=== PATIENT | male | born 2000 | race Caucasian/White ===

== ENCOUNTER 2023-05-06 11:55 | Emergency (ER) | payer OTHER, SELFPAY ==
--- OUTSIDE RECORDS SUMMARY | 2023-05-06 12:19 | XMS REPORT | Continuity of Care Document ---
:2000 Author Organization [facility] t Address [address]. [address] [place] [address] Care Team Providers Name Role Phone JOANIE IZAGUIRRE Attending Clinician Unavailable ZINA, SON Attending Clinician [phone] ABDIRIZAK ALM Attending Clinician Unavailable ABDIRIZAK LAM Attending Clinician [phone] [facility], PROVIDER Attending Clinician Unavailable TREY CORREA Attending Clinician [phone] Robin Dempsey Attending Clinician [facility], NURSE Attending Clinician Unavailable Donte Buitrago Attending Clinician DR JAZMIN MAYEN Attending Clinician Unavailable DR SHARON MAYEN Attending Clinician Unavailable ANDREW VAIL Attending Clinician Unavailable TATA JARAMILLO Attending Clinician [phone] DR JAZMIN MAYEN Admitting Clinician Unavailable DR SHARON MAYEN Admitting Clinician Unavailable ANDREW VAIL Admitting Clinician Unavailable Problems Condition Condition Condition Status Onset Resolution Last Treating Co mments Source Name Details Category Date Date Treatment Clinician Date Epigastric Epigastri Problem 2018-01-15 Memoria pain c pain 21:29:45 l 01/15/2018 Kelvin patrick [place] Nausea Nausea Problem 2018-01-15 Aldo naye 01/15/2018 21:29:45 l MH [place] Attention- Attention Problem 2018-01-15 Memoria deficit -deficit 21:29:45 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 rmann ity ity disorder, disorder, unspecifie unspecifie d type d type 01/15/2018 MH [place] Heart Heart Problem Resolve 2018-02-27 Aldo naye murmur murmur d 11:47:12 l (observabl (observabl He rmann e entity) e entity) Resolved Problem 02/27/2018 [facility] [place] Attention Attention Problem Active 2018-02-27 Memoria deficit deficit 11:47:12 l hyperactiv hyperactiv Roger escobar ity disorder disorder (disorder) (disorder) Active Problem 02/27/2018 [facility] [place] Migraine Migraine Problem Active 2018-02-27 Memoria (disorder) (disorder) 11:47:12 l Active Deric [facility] [place] History of Past Illness Condition Condition Condition Status Onset Resolution Last Treating Co mments Source Name Details Category Date Date Treatment Clinician Date Right Right Problem 2018-01-15 2018-01-15 M emoria upper upper 1-17 21:29:45 21:29:45 l quadrant quadrant 04:50: Kelvin n pain pain 33 10/16/2017 01/15/2018 [place] Unspecifie Unspecifi Problem 2018-01-15 2018-01-15 Memoria d ed 1-10 21:29:45 21:29:45 l abdominal abdominal 06:00: Herm rajiv pain pain 00 10/09/2017 01/15/2018 [place] Allergies, Adverse Reactions, Alerts Allergy Allergy Status Severity Reaction(s) Onset Inactive Treating Comm ents Source Name Type Date Date Clinician Wero Bactrim Active Chun Leos NKFA NKFA Active Chun Leos Social History Social Habit Start Date Stop Date Quantity Comments Source Sex Assigned At Male [facility] Social History 2017-10-21 2017-10-21 Quin avila 17:09:32 17:09:32 Smoking Status Start Date Stop Date Source Unknown if ever smoked [facility] Medications Ordered Filled Start Stop Current Ordering Indication Dosage Frequency Signature Comments Components Source Medication Medication Date Date Medication? Clinician (SIG) Name Name GI cocktail No Notes: Aldo naye 1-11 G.I. l 03:53: Cocktail = [place] 00 antacid with simethicon e 22.5 mL - lidocaine viscous 7.5 mL Zofran No Notes: Memoria 1-11 (Same as: l 03:53: Zofran) Deric 00 MEDICATION WASTE Product Size: 4 mg Product Wasted: ___ mg NS (Bolus) No 1,000 mL, Me moria IV 1-11 1,000 l 03:53: ml/hr, Deric 00 Infuse Over: 1 hr, Route: IV, 1,000, Drug form: INJ, ONCE, Priority: STAT, Dosing Weight 69.545 kg, Start date: 10/09/17 21:53:00 PLASTIC PRESS MOLDER, Stop date: 10/09/17 21:53:00 PLASTIC PRESS MOLDER Immunizations Ordered Filled Date Status Comments Source Immunization Name Immunization Name Influenza Completed Note: FLU VACC 4 [facility] 2 URIEL 3 YRS PLUS IM 00:00:00 By CHULA ; Source: New Immunization Record Influenza Completed Note: FLU VACC 4 [facility] 2 URIEL 3 YRS PLUS IM 00:00:00 By CHULA ; Source: New Immunization Record Influenza Completed Note: FLU VACC 4 [facility] 2 URIEL 3 YRS PLUS IM 00:00:00 By CHULA ; Source: New Immunization Record Influenza Completed Note: FLU VACC 4 [facility] 2 URIEL 3 YRS PLUS IM 00:00:00 By CHULA ; Source: New Immunization Record Influenza Completed Note: FLU VACC 4 [facility] 2 URIEL 3 YRS PLUS IM 00:00:00 [facility] ; Source: New Immunization Record HPV 2017-03-31 Completed Note: HPV [facility] 4 VACCINE-75 By 00:00:00 [facility] ; Source: New Immunization Record HPV 2017-03-31 Completed Note: HPV [facility] 4 VACCINE-75 By 00:00:00 [facility] ; Source: New Immunization Record HPV 2017-03-31 Completed Note: HPV [facility] 4 VACCINE-75 By 00:00:00 [facility] ; Source: New Immunization Record HPV 2017-03-31 Completed Note: HPV [facility] 4 VACCINE-75 By 00:00:00 [facility] ; Source: New Immunization Record HPV 2017-03-31 Completed Note: HPV [facility] 4 VACCINE-75 By 00:00:00 CHULA ; Source: New Immunization Record HPV 2016-11-29 Completed Note: HPV [facility] 4 VACCINE-75 By 00:00:00 [facility] ; Source: New Immunization Record HPV 2016-11-29 Completed Note: HPV [facility] 4 VACCINE-75 By 00:00:00 CORTEGA ; Source: New Immunization Record HPV 2016-11-29 Completed Note: HPV [facility] 4 VACCINE-75 By 00:00:00 CORTEGA ; Source: New Immunization Record HPV 2016-11-29 Completed Note: HPV [facility] 4 VACCINE-75 By 00:00:00 CORTEGA ; Source: New Immunization Record HPV 2016-11-29 Completed Note: HPV [facility] 4 VACCINE-75 By 00:00:00 CORTEGA ; Source: New Immunization Record HPV 2016-10-01 Completed Note: HPV [facility] 4 VACCINE-75 By 00:00:00 [facility] ; Source: New Immunization Record HPV 2016-10-01 Completed Note: HPV [facility] 4 VACCINE-75 By 00:00:00 [facility] ; Source: New Immunization Record HPV 2016-10-01 Completed Note: HPV [facility] 4 VACCINE-75 By 00:00:00 [facility] ; Source: New Immunization Record HPV 2016-10-01 Completed Note: HPV [facility] 4 VACCINE-75 By 00:00:00 [facility] ; Source: New Immunization Record HPV 2016-10-01 Completed Note: HPV [facility] 4 VACCINE-75 By 00:00:00 [facility] ; Source: New Immunization Record Meningococcal 2016-05-02 Completed Note: MCV4 [facility] (MENIGOCOCCAL 00:00:00 CONJUGATE VACCINE W-135) By CORTEGA ; Source: New Immunization Record Meningococcal 2016-05-02 Completed Note: MCV4 [facility] (MENIGOCOCCAL 00:00:00 CONJUGATE VACCINE W-135) By CORTEGA ; Source: New Immunization Record Meningococcal 2016-05-02 Completed Note: MCV4 [facility] 1 (MENIGOCOCCAL 00:00:00 CONJUGATE VACCINE W-135) By CORTEGA ; Source: New Immunization Record Meningococcal 2016-05-02 Completed Note: MCV4 [facility] 1 (MENIGOCOCCAL 00:00:00 CONJUGATE VACCINE W-135) By CORTEGA ; Source: New Immunization Record Meningococcal 2016-05-02 Completed Note: MCV4 [facility] 1 (MENIGOCOCCAL 00:00:00 CONJUGATE VACCINE W-135) By CORTEGA ; Source: New Immunization Record Vital Signs Vital Name Observation Time Observation Value Comments Source Intravascular Systolic 2018-04-15 15:03:00 132 mm[Hg] [facility] Intravascular 2018-04-15 15:03:00 73 mm[Hg] [facility] Diastolic Heart Beat 2018-04-15 15:03:00 62 /min [facility] Body Temperature 2018-04-15 15:03:00 98.50 [degF] [facility] Respiratory Rate 2018-04-15 15:03:00 22 /min [facility] Body mass index 2018-04-15 15:03:00 23[facility]60 [facility] height 2018-04-15 15:03:00 65.00 [in_us] [facility] Patient Body Weight 2018-04-15 15:03:00 142.12 [lb_av] [facility] Body height 2017-11-01 14:23:00 65.00 [in_us] [facility] Patient Body Weight 2017-11-01 14:23:00 154.00 [lb_av] [facility] Systolic 2017-11-01 14:23:00 130 mm[Hg] [facility] 2017-11-01 14:23:00 71 mm[Hg] [facility] Diastolic Heart Beat 2017-11-01 14:23:00 69 /min [facility] Body Temperature 2017-11-01 14:23:00 98.10 [degF] [facility] Respiratory Rate 2017-11-01 14:23:00 18 /min [facility] Body mass index 2017-11-01 14:23:00 25[facility]60 [facility] 2017-10-10 05:55:00 [facility] Temperature Oral (F) 2017-10-10 05:55:00 98 F [facility] Respitory Rate 2017-10-10 05:55:00 Memori al [place] Systolic (mm Hg) 2017-10-10 05:55:00 Aldo rial [place] Diastolic (mm Hg) 2017-10-10 05:55:00 Mem orial Deric Temperature Oral (F) 2017-10-10 05:23:00 98 F [facility] Respitory Rate 2017-10-10 05:23:00 Memori al [place] Heart Rate 2017-10-10 05:23:00 [facility] Systolic (mm Hg) 2017-10-10 05:23:00 Aldo rial [place] Diastolic (mm Hg) 2017-10-10 05:23:00 Mem orial [place] Respitory Rate 2017-10-10 02:58:00 Maria Elena al [place] Heart Rate 2017-10-10 02:58:00 [facility] Temperature Oral (F) 2017-10-10 02:58:00 97.9 F [facility] Weight 2017-10-10 02:58:00 [facility] Systolic (mm Hg) 2017-10-10 02:58:00 Aldo maldonado [place] Diastolic (mm Hg) 2017-10-10 02:58:00 Mem bernabe Javierann Body height 2017-10-09 14:10:00 65.00 [in_us] [facility] Patient Body Weight 2017-10-09 14:10:00 151.25 [lb_av] [facility] Systolic 2017-10-09 14:10:00 144 mm[Hg] [facility] 2017-10-09 14:10:00 97 mm[Hg] [facility] Diastolic Heart Beat 2017-10-09 14:10:00 78 /min [facility] Body Temperature 2017-10-09 14:10:00 97.50 [degF] [facility] Respiratory Rate 2017-10-09 14:10:00 22 /min [facility] Body mass index 2017-10-09 14:10:00 25.20 [facility] height 2017-09-11 09:40:00 64.50 [in_us] [facility] Body Weight 2017-09-11 09:40:00 150.25 [lb_av] [facility] Systolic 2017-09-11 09:40:00 130 mm[Hg] [facility] 2017-09-11 09:40:00 81 mm[Hg] [facility] Diastolic Heart Beat 2017-09-11 09:40:00 65 /min [facility] Body Temperature 2017-09-11 09:40:00 98.10 [degF] [facility] Respiratory Rate 2017-09-11 09:40:00 18 /min [facility] Body mass index 2017-09-11 09:40:00 25.40 [facility]m2 [facility] height 2017-05-03 16:05:00 64.50 [in_us] [facility] Body Weight 2017-05-03 16:05:00 141.60 [lb_av] [facility] Systolic 2017-05-03 16:05:00 129 mm[Hg] [facility] 2017-05-03 16:05:00 68 mm[Hg] [facility] Diastolic Heart Beat 2017-05-03 16:05:00 73 /min [facility] Body Temperature 2017-05-03 16:05:00 97.90 [degF] [facility] Respiratory Rate 2017-05-03 16:05:00 18 /min [facility] Body mass index 2017-05-03 16:05:00 23.90 kg/m2 [facility] Body height 2017-01-08 16:04:00 64.00 [in_us] [facility] Patient Body Weight 2017-01-08 16:04:00 133.80 [lb_av] [facility] Systolic 2017-01-08 16:04:00 120 mm[Hg] [facility] 2017-01-08 16:04:00 77 mm[Hg] [facility] Diastolic Heart Beat 2017-01-08 16:04:00 63 /min [facility] Body Temperature 2017-01-08 16:04:00 98.30 [degF] [facility] Respiratory Rate 2017-01-08 16:04:00 18 /min [facility] Body mass index 2017-01-08 16:04:00 23.00 kg/m2 [facility] Body height 2016-11-07 16:17:00 64.00 [in_us] [facility] Patient Body Weight 2016-11-07 16:17:00 127.25 [lb_av] [facility] Systolic 2016-11-07 16:17:00 114 mm[Hg] [facility] 2016-11-07 16:17:00 80 mm[Hg] [facility] Diastolic Heart Beat 2016-11-07 16:17:00 59 /min [facility] Body Temperature 2016-11-07 16:17:00 97.50 [degF] [facility] Respiratory Rate 2016-11-07 16:17:00 22 /min [facility] Body mass index 2016-11-07 16:17:00 21.80 kg/m2 [facility] Patient Body Weight 2016-10-23 15:37:00 130.00 [lb_av] [facility] Systolic 2016-10-23 15:37:00 131 mm[Hg] [facility] 2016-10-23 15:37:00 76 mm[Hg] [facility] Diastolic Heart Beat 2016-10-23 15:37:00 73 /min [facility] Body Temperature 2016-10-23 15:37:00 97.60 [degF] [facility] Respiratory Rate 2016-10-23 15:37:00 18 /min [facility] Body height 2016-08-01 10:21:00 64.00 [in_us] [facility] Patient Body Weight 2016-08-01 10:21:00 130.00 [lb_av] [facility] Systolic 2016-08-01 10:21:00 128 mm[Hg] [facility] 2016-08-01 10:21:00 62 mm[Hg] [facility] Diastolic Heart Beat 2016-08-01 10:21:00 65 /min [facility] Body Temperature 2016-08-01 10:21:00 96.80 [degF] [facility] Respiratory Rate 2016-08-01 10:21:00 20 /min [facility] Body mass index 2016-08-01 10:21:00 22.30 [facility] height 2016-05-30 14:44:00 63.25 [in_us] [facility] Patient Body Weight 2016-05-30 14:44:00 128.60 [lb_av] [facility] Systolic 2016-05-30 14:44:00 131 mm[Hg] [facility] 2016-05-30 14:44:00 84 mm[Hg] [facility] Diastolic Heart Beat 2016-05-30 14:44:00 72 /min [facility] Body Temperature 2016-05-30 14:44:00 97.40 [degF] [facility] Respiratory Rate 2016-05-30 14:44:00 20 /min [facility] Body mass index 2016-05-30 14:44:00 22.60 kg/m2 [facility] Procedures Procedure Date / Time Performed Performing Clinician Sourc e Infectious agent detection 2020-07-09 00:00:00 [facility] by nucleic acid (DNA or Tonsillectomy and [facility] adenoidectomy Encounters Start End Encounter Admission Attending Care Care Encounter Source Date/Time Date/Time Type Type Clinicians Facility Department ID 2021-11-30 2021-11-30 Outpatient JOANIE IZAGUIRRE [facility] [id number] [facility] 13:18:00 13:18:00 [facility] 2021-11-30 2021-11-30 Outpatient JOANIE IZAGUIRRE [facility] [id number] [facility] 13:18:00 13:18:00 e2-6nt2-78q [id number] [facility] [id number] 2021-11-29 2021-11-29 Outpatient JOANIE IZAGUIRRE [facility] [id number] [facility] 13:49:00 13:49:00 [facility] 2021-11-29 2021-11-29 Outpatient JOANIE IZAGUIRRE [facility] [id number] [facility] 13:49:00 13:49:00 e2-1io8-39y [id number] [facility] [id number] 2020-07-09 2020-07-09 Outpatient [facility] [id number] [facility] 08:30:00 08:30:00 [facility] 2020-07-09 2020-07-09 Outpatient CAROLE, [facility] [id number] [facility] 08:30:00 08:30:00 ABDIRIZAK [facility] 2020-07-09 2020-07-09 Outpatient CAROLE, [facility] [id number] [facility] 08:30:00 08:30:00 ABDIRIZAK Patricia [id number] [facility] [id number] 2020-07-09 2020-07-09 Outpatient [facility] [id number] [facility] 08:30:00 08:30:00 00-0000-000 [id number] ealt [id number] 2018-04-15 2018-04-15 Outpatient CAROLE, [facility] [id number] [facility] 15:03:00 15:03:00 ABDIRIZAK Patricia [id number] ealth [id number] [id number] 2018-04-15 2018-04-15 Outpatient [facility] [id number] [facility] 00:00:00 00:00:00 H, PROVIDER ea lth 2018-04-15 2018-04-15 Outpatient [facility] [id number] [facility] 00:00:00 00:00:00 H, PROVIDER [id number] ealth [id number] 2018-04-15 2018-04-15 Outpatient SUNNY, [facility] [id number] [facility] 00:00:00 00:00:00 TREY [id number] ealth [id number] 0f4 [id number] 2018-03-18 2018-03-18 Outpatient CAROLE, [facility] [id number] [facility] 00:00:00 00:00:00 ABDIRIZAK Patricia [id number] ealth [id number] 0f4 [id number] 2017-11-21 2017-11-21 Ambulatory nullFlavo [facility] [id number] Memoria 20:20:00 20:20:00 Pre-Reg r Gastroenter 01 l ology Sugar Herm rajiv Land 2017-11-21 2017-11-21 Outpatient [facility] [id number] Memoria 14:20:00 14:20:00 01 l Deric 2017-11-21 2017-11-21 Outpatient Roselyn, [facility] [id number] 14:20:00 14:20:00 Robin 01 Travon 2017-11-07 2017-11-07 Outpatient CAROLE, [facility] [id number] [facility] 00:00:00 00:00:00 ABDIRIZAK Patricia [id number] [id number] ealt [id number] 2017-11-01 2017-11-01 Outpatient CAROLE, [facility] [id number] [facility] 15:32:00 15:32:00 ABDIRIZAK Patricia e2-3bp7-41q [id number] ealth [id number] [id number] 2017-11-01 Outpatient [facility] [id number] [facility] 00:00:00 00:00:00 H, PROVIDER ea lth 2017-11-01 2017-11-01 Outpatient [facility] [id number] [facility] 00:00:00 00:00:00 H, PROVIDER [id number] f1-8 ealth [id number] 2017-11-01 2017-11-01 Outpatient SUNNY, [facility] [id number] [facility] 00:00:00 00:00:00 TREY e2-3pn3-62g [id number] ealth [id number] 0f4 [id number] 2017-11-01 2017-11-01 Outpatient [facility], [facility] [id number] [facility] 00:00:00 00:00:00 NURSE e2-4vw8-37g [id number] ealth [id number] 0f4 [id number] 2017-10-21 2017-10-21 Outpatient [facility] [id number] [facility] 10:40:00 10:40:00 00 darlyn Leos 2017-10-10 2017-10-10 Emergency [facility] [id number] Memoria 02:45:00 05:59:00 [place] 2017-10-09 2017-10-09 Outpatient Iftikhar, [facility] [id number] 20:45:00 23:59:00 Donte 00 Rojelio 2017-10-09 2017-10-09 Outpatient CAROLE, [facility] [id number] [facility] 14:10:00 14:10:00 ABDIRIZAK Patricia e2-3vs6-97d [id number] ealth [id number] 0f4 [id number] 2017-10-09 2017-10-09 Outpatient [facility] [id number] [facility] 00:00:00 00:00:00 H, PROVIDER [facility] 2017-10-09 2017-10-09 Outpatient [facility] [id number] [facility] 00:00:00 00:00:00 H, PROVIDER [id number] [id number] [id number] ealth [id number] 2017-09-11 2017-09-11 Outpatient CAROLE, [facility] [id number] [facility] 09:40:00 09:40:00 ABDIRIZAK Patricia e2-5go7-35f [id number] ealth [id number] 0f4 [id number] 2017-09-11 2017-09-11 Outpatient [facility] [id number] [facility] 00:00:00 00:00:00 H, PROVIDER [facility] 2017-09-11 2017-09-11 Outpatient [facility] [id number] [facility] 00:00:00 00:00:00 H, PROVIDER e2-7xp3-97o [id number] fc-8 ealth [id number] 2017-09-08 2017-09-08 Emergency E [facility]EM [facility] [id number] [place] 17:19:00 18:45:00 [facility] 2017-08-28 2017-08-28 Emergency E [facility]ARON [facility]EN [facility] [id number] [place] 15:14:00 16:30:00 [facility] [place] 2017-08-27 2017-08-27 Emergency E GENNA [facility] [id number] [place] 15:20:00 16:10:00 [facility] 2017-05-06 2017-05-06 Outpatient CAROLE, [facility] [id number] [facility] 00:00:00 00:00:00 ABDIRIZAK Patricia e2-2ef3-44l [id number] ealt [id number] 0f4 [id number] 2017-05-03 2017-05-03 Outpatient CAROLE, [facility] [id number] [facility] 16:05:00 16:05:00 ABDIRIZAK Patricia e2-8mk2-19o [id number] ealth [id number] 0f4 [id number] 2017-05-03 2017-05-03 Outpatient [facility] [id number] [facility] 00:00:00 00:00:00 H, PROVIDER [facility] 2017-05-03 2017-05-03 Outpatient [facility] [id number] [facility] 00:00:00 00:00:00 H, PROVIDER e2-1ks6-24j [id number] [id number] ealth [id number] 2017-04-22 2017-04-22 Outpatient H ZULMA, HC [id number] [facility] 15:12:00 15:12:00 NURSE e2-4fu0-48d [id number] ealth [id number] [id number] 2017-04-22 2017-04-22 Outpatient [facility] [id number] [facility] 00:00:00 00:00:00 H, PROVIDER [facility] 2017-04-22 2017-04-22 Outpatient [facility] [id number] [facility] 00:00:00 00:00:00 H, PROVIDER e2-5jh3-90k [id number]-46 1d-b ealth [id number] 0f4 [id number] 2017-01-08 2017-01-08 Outpatient CAROLE, [facility] [id number] [facility] 16:04:00 16:04:00 ABDIRIZAK S e2-1kg6-02j [id number] ealth [id number] 2017-01-08 2017-01-08 Outpatient [facility] [id number] [facility] 00:00:00 00:00:00 H, PROVIDER [facility] 2017-01-08 2017-01-08 Outpatient [facility] [id number] [facility] 00:00:00 00:00:00 H, PROVIDER e2-2tu5-77k [id number] [id number] ealth [id number] 2016-12-21 2016-12-21 Outpatient [facility], [facility] [id number] [facility] 15:47:00 15:47:00 NURSE e2-2cf0-86t [id number] ealth [id number] 2016-12-21 2016-12-21 Outpatient [facility] [id number] [facility] 00:00:00 00:00:00 H, PROVIDER [facility] 2016-12-21 2016-12-21 Outpatient [facility] [id number] [facility] 00:00:00 00:00:00 H, PROVIDER e2-8tv7-56o a93-43 f9-a ealth 0-yp2hav530 [id number] 0f4 [id number] 2016-11-07 2016-11-07 Outpatient L[place], [facility] [id number] [facility] 16:17:00 16:17:00 ABDIRIZAK S e2-6jf5-17w b94-21aw -b ealt 0-zk2szw270 [id number] 0f4 e9cbac 2016-11-07 2016-11-07 Outpatient [facility] [id number] [facility] 00:00:00 00:00:00 H, PROVIDER [facility] 2016-11-07 2016-11-07 Outpatient [facility] [id number] [facility] 00:00:00 00:00:00 H, PROVIDER e2-4mg1-08t c71-46 39-8 ealth 0-wa5egg659 53c-9dy405 0f4 [id number] 2016-10-25 2016-10-25 Outpatient [place], [facility] [id number] [facility] 00:00:00 00:00:00 [place] e2-9ul0-30d 0b7-12o1 -9 ealt 0-ur8bta626 [id number] 0f4 [id number] 2016-10-23 2016-10-23 Outpatient [place], [facility] [id number] [id number] [facility] 16:06:00 16:06:00 [place] e2-2zy1-42j t1o-0717 -8 ealt 0-vx2gqg542 [id number] 0f4 edfa78 2016-10-23 2016-10-23 Outpatient [facility] [id number] [facility] 00:00:00 00:00:00 H, PROVIDER [facility] 2016-10-23 2016-10-23 Outpatient [facility] [id number] [facility] 00:00:00 00:00:00 H, PROVIDER e2-1yr5-26l 77e-47 17-9 ealth 0-ib5yec360 dfe-[id number] 0f4 [id number] 2016-10-23 2016-10-23 Outpatient [place], [facility] [id number] [facility] 00:00:00 00:00:00 ABDIRIZAK S e2-6jz0-81k 0l4-515u -a ealth 0-ds1zvv008 [id number]-[id number] 0f4 [id number] 2016-08-01 2016-08-01 Outpatient [place], [facility] [id number] [facility] 10:21:00 10:21:00 ABDIRIZAK [place] e2-1mn0-47q 9m7-0x5u -8 ealth 0-xi9cdx903 fbd-gar456 0f4 8cbe2a 2016-08-01 2016-08-01 Outpatient [facility] [id number] [facility] 00:00:00 00:00:00 H, PROVIDER ea lth 2016-08-01 2016-08-01 Outpatient [facility] [id number] [facility] 00:00:00 00:00:00 H, PROVIDER e2-9vg2-53g 12a-46 8f-9 ealth 0-tk0fcp360 bff-f6a1cb 0f4 [id number] 2016-07-04 2016-07-04 Outpatient [place] [facility] [id number] [facility] 00:00:00 00:00:00 TREY e2-0jo9-57d 53d-4b8f-b ealth 0-[id number] [id number] 0f4 [id number] 7212-09-01 2016-05-31 Outpatient SUN[facility], [facility] [id number] [facility] 00:00:00 00:00:00 TREY e2-9ci2-08t 6k4-6s3q-9 ealth 0-is6mrv846 [id number] 0f4 [id number] 2016-05-30 2016-05-30 Outpatient SUNNY, [facility] [id number] [facility] 15:21:00 15:21:00 TREY e2-9ok4-09w 6j4-2fh1-5 ealth 0-fh1lxo953 [id number] 0f4 [id number] 2016-05-30 2016-05-30 Outpatient [facility] [id number] [facility] 00:00:00 00:00:00 H, PROVIDER robert lanza 2016-05-30 2016-05-30 Outpatient [facility] [id number] [facility] 00:00:00 00:00:00 H, PROVIDER vida4za2-43c de1-46 51-b [facility] 0-be9omt577 [id number]-[id number] 0f4 [id number] 2016-05-29 2016-05-29 Outpatient [facility] [id number] [facility] 00:00:00 00:00:00 H, PROVIDER robert lanza 2016-05-29 2016-05-29 Outpatient [facility] [id number] [facility] 00:00:00 00:00:00 H, PROVIDER vida9cf5-91d 8bc-4b 2c-b [facility] 0-do8fex105 [id number]-[id number] 0f4 1decfa 2015-08-02 2015-08-02 Outpatient [facility] [id number] [facility] 00:00:00 00:00:00 H, PROVIDER robert lanza 2015-08-02 2015-08-02 Outpatient [facility] [id number] [facility] 00:00:00 00:00:00 H, PROVIDER vida8dm5-96x 74b-45 d0-8 [facility] 0-an1lyn694 [id number] 0f4 [id number] 2015-01-18 2015-01-18 Outpatient [facility] [id number] [facility] 00:00:00 00:00:00 H, PROVIDER robert lanza 2015-01-18 2015-01-18 Outpatient [facility] [id number] [facility] 00:00:00 00:00:00 H, PROVIDER vida9oe0-85o 9a5-4d 77-a [facility] 0-oz6zuj306 [id number] 0f4 [id number] 2014-10-06 2014-10-06 Outpatient [facility] [id number] [facility] 00:00:00 00:00:00 H, PROVIDER robert lanza 2014-10-06 2014-10-06 Outpatient [facility] [id number] [facility] 00:00:00 00:00:00 H, PROVIDER vida1zz5-94f e9a-42 ac-b [facility] 0-[id number] [id number] 0f4 [id number] 2014-07-21 2014-07-21 Outpatient [facility] [id number] [facility] 00:00:00 00:00:00 H, PROVIDER robert odell 2014-07-21 2014-07-21 Outpatient [facility] [id number] [facility] 00:00:00 00:00:00 H, PROVIDER vida5sc5-28o 3c2-44 dc-b [facility] 0-bj1ivn533 [id number] 0f4 [id number] 2014-01-19 2014-01-19 Outpatient [facility] [id number] [facility] 00:00:00 00:00:00 H, PROVIDER robert odell 2014-01-19 2014-01-19 Outpatient [facility] [id number] [facility] 00:00:00 00:00:00 H, PROVIDER vida8yv5-20z 20e-47 88-8 [facility] 0-iq6jqt411 [id number] 0f4 [id number] 2013-10-22 2013-10-22 Outpatient [facility] [id number] [facility] 00:00:00 00:00:00 H, PROVIDER robert odell 2013-10-22 2013-10-22 Outpatient [facility] [id number] [facility] 00:00:00 00:00:00 H, PROVIDER vida5bp0-62y 08e-4b f8-8 [facility] 0-iw2jda480 [id number] 0f4 [id number] 2013-02-20 2013-02-20 Outpatient [facility] [id number] [facility] 00:00:00 00:00:00 H, PROVIDER robert lanza 2013-02-20 2013-02-20 Outpatient [facility] [id number] [facility] 00:00:00 00:00:00 H, PROVIDER jacqueline-5ht2-86k a67-40 62-b [facility] 0-tz4rgk534 [id number] 0f4 528ade 2012-05-15 2012-05-15 Outpatient [facility] [id number] [facility] 00:00:00 00:00:00 H, PROVIDER robert lanza 2012-05-15 2012-05-15 Outpatient [facility] [id number] [facility] 00:00:00 00:00:00 H, PROVIDER vida5ef6-56z 609-43 5f-b [facility] 0-qw0zjc424 [id number] 0f4 [id number] 2012-04-28 2012-04-28 Outpatient [facility] [id number] [facility] 00:00:00 00:00:00 H, PROVIDER robert odell 2012-04-28 2012-04-28 Outpatient [facility] [id number] [facility] 00:00:00 00:00:00 H, PROVIDER jacqueline-5jm8-35f b8f-45 1f-b [facility] 0-ti7evt896 [id number] 0f4 [id number] 2012-04-23 2012-04-23 Outpatient [facility] [id number] [facility] 00:00:00 00:00:00 H, PROVIDER robert lanza 2012-04-23 2012-04-23 Outpatient [facility] [id number] [facility] 00:00:00 00:00:00 H, PROVIDER jacqueline-1xi8-11p e7b-45 c1-8 [facility] 0-om1xek244 [id number] 0f4 [id number] 2012-03-10 2012-03-10 Outpatient [facility] [id number] [facility] 00:00:00 00:00:00 H, PROVIDER robert lanza 2012-03-10 2012-03-10 Outpatient [facility] [id number] [facility] 00:00:00 00:00:00 H, PROVIDER vida9el4-85w 802-4b 84-b [facility] 0-lq6qgg034 [id number] 0f4 [id number] 2012-03-06 2012-03-06 Outpatient [facility] [id number] [facility] 00:00:00 00:00:00 H, PROVIDER robert lanza 2012-03-06 2012-03-06 Outpatient [facility] [id number] [facility] 00:00:00 00:00:00 H, PROVIDER jacqueline-8qx9-09t c2b-43 0a-9 [facility] 0-[id number] [id number] 0f4 [id number] 2011-09-27 2011-09-27 Outpatient [facility] [id number] [facility] 00:00:00 00:00:00 H, PROVIDER robert lanza 2011-09-27 2011-09-27 Outpatient [facility] [id number] [facility] 00:00:00 00:00:00 H, PROVIDER jacqueline-4af6-86r 55e-4b c8-9 [facility] 0-st4usf504 [id number] 0f4 [id number] 2011-09-11 2011-09-11 Outpatient [facility] [id number] [facility] 00:00:00 00:00:00 H, PROVIDER robert lanza 2011-09-11 2011-09-11 Outpatient [facility] [id number] [facility] 00:00:00 00:00:00 H, PROVIDER vida2as3-90d 6ab-4a 18-9 [facility] 0-zc2yha524 [id number] 0f4 [id number] 2011-08-09 2011-08-09 Outpatient [facility] [id number] [facility] 00:00:00 00:00:00 H, PROVIDER robert lanza 2011-08-09 2011-08-09 Outpatient [facility] [id number] [facility] 00:00:00 00:00:00 H, PROVIDER vida0gh0-82x 060-43 1a-b ealt 0-bh3bui269 [id number]-cda4d9 0f4 82fefa 2011-02-16 2011-02-16 Outpatient [facility] [id number] [facility] 00:00:00 00:00:00 H, PROVIDER robert lanza 2011-02-16 2011-02-16 Outpatient [facility] [id number] [facility] 00:00:00 00:00:00 H, PROVIDER vida2yf9-53s 1ff-44 04-9 ealt 0-bj4sbk309 [id number] 0f4 [id number] 2010-11-15 2010-11-15 Outpatient [facility] [id number] [facility] 00:00:00 00:00:00 H, PROVIDER robert lanza 2010-11-15 2010-11-15 Outpatient [facility] [id number] [facility] 00:00:00 00:00:00 H, PROVIDER vida8io7-02r 00c-4f 98-b ealt 0-ap1mja362 [id number] 0f4 [id number] 2010-09-13 2010-09-13 Outpatient [facility] [id number] [facility] 00:00:00 00:00:00 H, PROVIDER robert lanza 2010-09-13 2010-09-13 Outpatient [facility] [id number] [facility] 00:00:00 00:00:00 H, PROVIDER vida6yp7-24m 5d1-41 26-8 ealt 0-xf2hjl315 [id number] 0f4 [id number] 2010-07-27 2010-07-27 Outpatient [facility] [id number] [facility] 00:00:00 00:00:00 H, PROVIDER robert odell 2010-07-27 2010-07-27 Outpatient [facility] [id number] [facility] 00:00:00 00:00:00 H, PROVIDER vida0xh8-91j de1-42 73-a [facility] 0-hl5hpm268 [id number]-[id number] 0f4 [id number] 2010-05-08 2010-05-08 Outpatient [facility] [id number] [facility] 00:00:00 00:00:00 H, PROVIDER robert lanza 2010-05-08 2010-05-08 Outpatient [facility] [id number] [facility] 00:00:00 00:00:00 H, PROVIDER vida4sz2-88r b9f-47 58-8 [facility] 0-[id number] [id number]-[id number] 0f4 [id number] 2009-07-26 2009-07-26 Outpatient [facility] [id number] [facility] 00:00:00 00:00:00 H, PROVIDER robert odell 2009-07-26 2009-07-26 Outpatient [facility] [id number] [facility] 00:00:00 00:00:00 H, PROVIDER vida5su7-30g 760-49 0b-b [facility] 0-cp0pqi530 [id number] 0f4 [id number] 2009-06-28 2009-06-28 Outpatient [facility] [id number] [facility] 00:00:00 00:00:00 H, PROVIDER robert lanza 2009-06-28 2009-06-28 Outpatient [facility] [id number] [facility] 00:00:00 00:00:00 H, PROVIDER vida7lu9-82z b19-48 0c-b [facility] 0-vz9xnv231 [id number] 0f4 [id number] 2009-05-24 2009-05-24 Outpatient [facility] [id number] [facility] 00:00:00 00:00:00 H, PROVIDER [facility] 2009-05-24 2009-05-24 Outpatient [facility] [id number] [facility] 00:00:00 00:00:00 H, PROVIDER e2-4uy6-81s e00-4b 2e-b [facility] 0-vq7tli744 [id number] 0f4 [id number] 2009-05-17 2009-05-17 Outpatient [facility] [id number] [facility] 00:00:00 00:00:00 H, PROVIDER [facility] 2009-05-17 2009-05-17 Outpatient [facility] [id number] [facility] 00:00:00 00:00:00 H, PROVIDER vida9uu2-91u bcb-45 f9-9 [facility] 0-rb6nwx811 [id number] 0f4 [id number] 2009-04-18 2009-04-18 Outpatient [facility] [id number] [facility] 00:00:00 00:00:00 H, PROVIDER robert odell 2009-04-18 2009-04-18 Outpatient [facility] [id number] [facility] 00:00:00 00:00:00 H, PROVIDER vida3ly6-97e df2-4c 9d-b [facility] 0-km6meg144 [id number] 0f4 [id number] 2009-03-11 2009-03-11 Outpatient [facility] [id number] [facility] 00:00:00 00:00:00 H, PROVIDER robert odell 2009-03-11 2009-03-11 Outpatient [facility] [id number] [facility] 00:00:00 00:00:00 H, PROVIDER e2Ingrid1ih3-94i e3a-43 74-9 ealt 0-qn3hme834 07a-04bb08 0f4 [id number] 2009-02-14 2009-02-14 Outpatient [facility] [id number] [facility] 00:00:00 00:00:00 H, PROVIDER [facility] 2009-02-14 2009-02-14 Outpatient [facility] [id number] [facility] 00:00:00 00:00:00 H, PROVIDER e2-3ue1-18u cf2-48 91-9 [facility] 0-lm2kqy027 [id number] 0f4 [id number] 2009-01-28 2009-01-28 Outpatient [facility] [id number] [facility] 00:00:00 00:00:00 H, PROVIDER [facility] 2009-01-28 2009-01-28 Outpatient [facility] [id number] [facility] 00:00:00 00:00:00 H, PROVIDER e2-8mt7-46p 572-44 b2-b [facility] 0-fu3bwh642 [id number] 0f4 [id number] Results Test Description Test Time Test Comments Results Result Comments Source Panel Description: SARS-CoV-2 (COVID-19) RNA [Presence] in 2 06:49:00 Unspecified specimen by ASHLEY with probe detection Test Item Value Reference Range Interpretation Comme nts SARS-CoV-2, ASHLEY (test Not Detected Not Detected Testin g was performed using the code = 32781-1) reno(R) ELIDIA S-CoV-2 test.This nucleic acid am plification test was developed and i ts performancechar acteristics determined by [employer]. Nucleic acidamp lification tests include PCR and TMA. This test has not been FDAcle ared or approved. This test has b een authorized by FDA under anEmergen cy Use Authorization (EUA). This les t is only authorized forthe duration of time the declaration abida t circumstances existjustifying the authorization of the emergency u se of in vitrodiagnostic tests for detection of SARS-CoV-2 v irus and/or diagnosisof COV ID-19 infection under section 564(b)( 1) of the Act, 21 U.S.C.360bbb-3( b) (1), unless the authorization i s terminated or revokedsooner.W hen diagnostic testing is nega tive, the possibility of a falsenegat azra result should be considered in t he context of a patient'srecent exposures and the presence of cli nical signs and symptomsconsist ent with COVID-19. An individual with out symptoms of COVID-19and who is not shedding SARS-CoV-2 viru s would expect to have anegative (not detected) result in this assay.< br/>
Performed by:
[facility] ([facility])

[facility] Description: SARS-CoV-2 (COVID-19) RNA [Presence] in Specimen by ASHLEY with probe [id number] 06:49:00 Test Item Value Reference Range Interpretation Comments SARS-CoV-2 Not Detected Not Detected Testing was per formed using the , ASHLEY reno(R) SARS-C oV-2 test.This (test code nucleic acid am plification test = 77903-2) was developed a nd its performancechar acteristics determined by [employer]. [facility] acidamplificati on tests include PCR and TMA. Th is test has not been FDAcleared or approved. This test has b een authorized by FDA under anEme rgency Use Authorization ( EUA). This test is only authori zed forthe duration of charley e the declaration that circumstan charley existjustifying the authorization o f the emergency use of in vitro diagnostic tests for detection o f SARS-CoV-2 virus and/or di agnosisof COVID-19 infect ion under section 564(b)(1) of th e Act, 21 U.S.C.360bbb-3( b) (1), unless the authorizati on is terminated or revokedsoone r.When diagnostic testing is nega tive, the possibility of a falsenegative result should b e considered in the context of a patient'srecent exposures and t he presence of clinical signs and symptomsconsist ent with COVID-19. An in dividual without symptoms of COV ID-19and who is not shedding SA RS-CoV-2 virus would expect to have anegative (not detected) result in this assay.
<br/ >Performed by:
[facility] ([facility])

[facility] Description: SARS-CoV-2 (COVID-19) RNA [Presence] in Specimen by ASHLEY with probe [id number] 06:49:00 Test Item Value Reference Range Interpretation Comments SARS-CoV-2 Not Detected Not Detected Testing was per formed using the , ASHLEY reno(R) SARS-C oV-2 test.This (test code nucleic acid am plification test = 73049-6) was developed a nd its performancechar acteristics determined by [employer]. [facility] acidamplificati on tests include PCR and TMA. Th is test has not been FDAcleared or approved. This test has b een authorized by FDA under anEme rgency Use Authorization ( EUA). This test is only authori zed forthe duration of charley e the declaration that circumstan charley existjustifying the authorization o f the emergency use of in vitro diagnostic tests for detection o f SARS-CoV-2 virus and/or di agnosisof COVID-19 infect ion under section 564(b)(1) of th e Act, 21 U.S.C.360bbb-3( b) (1), unless the authorizati on is terminated or revokedsoone r.When diagnostic testing is nega tive, the possibility of a falsenegative result should b e considered in the context of a patient'srecent exposures and t he presence of clinical signs and symptomsconsist ent with COVID-19. An in dividual without symptoms of COV ID-19and who is not shedding SA RS-CoV-2 virus would expect to have anegative (not detected) result in this assay.
<br/ >Performed by:
[facility] ([facility])

[facility] Description: SARS-CoV-2 (COVID-19) RNA [Presence] in Specimen by ASHLEY with probe [id number] 06:49:00 Test Item Value Reference Range Interpretation Comments SARS-CoV-2 Not Detected Not Detected Testing was per formed using the , ASHLEY reno(R) SARS-C oV-2 test.This (test code nucleic acid am plification test = 92999-1) was developed a nd its performancechar acteristics determined by [employer]. N ucleic acidamplificati on tests include PCR and TMA. Th is test has not been FDAcleared or approved. This test has b een authorized by FDA under anEme rgency Use Authorization ( EUA). This test is only authori zed forthe duration of charley e the declaration that circumstan charley existjustifying the authorization o f the emergency use of in vitro diagnostic tests for detection o f SARS-CoV-2 virus and/or di agnosisof COVID-19 infect ion under section 564(b)(1) of th e Act, 21 U.S.C.360bbb-3( b) (1), unless the authorizati on is terminated or revokedsoone r.When diagnostic testing is nega tive, the possibility of a falsenegative result should b e considered in the context of a patient'srecent exposures and t he presence of clinical signs and symptomsconsist ent with COVID-19. An in dividual without symptoms of COV ID-19and who is not shedding SA RS-CoV-2 virus would expect to have anegative (not detected) result in this assay.
<br/ >Performed by:
[facility] ([facility])

[facility] Description: SARS-CoV-2 (COVID-19) RNA [Presence] in Unspecified specimen by ASHLEY with probe [id number] 06:49:00 Test Item Value Reference Range Interpretation Comments SARS-CoV-2 Not Detected Not Detected Testing was per formed using the , ASHLEY reno(R) SARS-C oV-2 test.This (test code nucleic acid am plification test = 58664-9) was developed a nd its performancechar acteristics determined by [employer]. N ucleic acidamplificati on tests include PCR and TMA. Th is test has not been FDAcleared or approved. This test has b een authorized by FDA under anEme rgency Use Authorization ( EUA). This test is only authori zed forthe duration of charley e the declaration that circumstan charley existjustifying the authorization o f the emergency use of in vitro diagnostic tests for detection o f SARS-CoV-2 virus and/or di agnosisof COVID-19 infect ion under section 564(b)(1) of th e Act, 21 U.S.C.360bbb-3( b) (1), unless the authorizati on is terminated or revokedsoone r.When diagnostic testing is nega tive, the possibility of a falsenegative result should b e considered in the context of a patient'srecent exposures and t he presence of clinical signs and symptomsconsist ent with COVID-19. An in dividual without symptoms of COV ID-19and who is not shedding SA RS-CoV-2 virus would expect to have anegative (not detected) result in this assay.
<br/ >Performed by:
[facility] ([facility])

[facility] [id number] 03:58:00 Test Item Value Reference Range Interpretation Comments Amylase Lvl (test code = Amylase Lvl) 33 25-115 [facility] [employer] [id number] 03:58:00 Test Item Value Reference Range Interpretation Comments Lipase Lvl (test code = Lipase Lvl) 111 73-393 [facility] [employer] [id number] 03:58:00 Test Item Value Reference Range Interpretation Comments eGFR (test code = eGFR) See Comment [facility] [employer] [id number] 03:58:00 Test Item Value Reference Range Interpretation Comments Albumin Lvl (test code = Albumin Lvl) 5.1 3.5-5.0 [facility] [employer] [id number] 03:58:00 Test Item Value Reference Range Interpretation Comments Bili Total (test code = Bili Total) 0.5 0.2-1.3 [facility] [employer] [id number] 03:58:00 Test Item Value Reference Range Interpretation Comments Alk Phos (test code = Alk Phos) 148 39-136 [facility] [employer] [id number] 03:58:00 Test Item Value Reference Range Interpretation Comments Glucose Lvl (test code = Glucose Lvl) 102 70-99 [facility] [employer] [id number] 03:58:00 Test Item Value Reference Range Interpretation Comments BUN (test code = BUN) 9 7-22 [place] [id number] 03:58:00 Test Item Value Reference Range Interpretation Comments Sodium Lvl (test code = Sodium Lvl) 138 135-145 [facility]2018-01-11 03:58:00 Test Item Value Reference Range Interpretation Comments Potassium Lvl (test code = Potassium 3.9 3.5-5.1 Lvl) [facility]2018-01-11 03:58:00 Test Item Value Reference Range Interpretation Comments Chloride Lvl (test code = Chloride Lvl) 99 95-109 [facility]2018-01-11 03:58:00 Test Item Value Reference Range Interpretation Comments Calcium Lvl (test code = Calcium Lvl) 9.7 8.5-10.5 [facility]2018-01-11 03:58:00 Test Item Value Reference Range Interpretation Comments Total Protein (test code = Total 9.0 6.4-8.4 Protein) [facility]2018-01-11 03:58:00 Test Item Value Reference Range Interpretation Comments Creatinine Lvl (test code = Creatinine 0.78 0.50-1.40 Lvl) [facility]2018-01-11 03:58:00 Test Item Value Reference Range Interpretation Comments ALT (test code = ALT) 28 See_Comment [Auto mated message] The system which ge nerated this result transmit marilu reference range : <=65. The reference range was not used to interpr et this result as stefanie l/abnormal. [facility]2018-01-11 03:58:00 Test Item Value Reference Range Interpretation Comments AST (test code = AST) 16 See_Comment [Auto mated message] The system which ge nerated this result transmit marilu reference range : <=37. The reference range was not used to interpr et this result as stefanie l/abnormal. [facility]2018-01-11 03:58:00 Test Item Value Reference Range Interpretation Comments CO2 (test code = CO2) 31 24-32 [facility]2018-01-11 03:58:00 Test Item Value Reference Range Interpretation Comments B/C Ratio (test code = B/C Ratio) 12 1 6-25 [place] [id number] 03:58:00 Test Item Value Reference Range Interpretation Comments Globulin (test code = Globulin) 3.9 2.7-4.2 [facility]2018-01-11 03:58:00 Test Item Value Reference Range Interpretation Comments A/G Ratio (test code = A/G Ratio) 1.3 1 0.7-1.6 [facility]2018-01-11 03:58:00 Test Item Value Reference Range Interpretation Comments AGAP (test code = AGAP) 11.9 10.0-20.0 [id number] 03:58:00 Test Item Value Reference Range Interpretation Comments Basophils # (test code 0.0 See_Comment [Aut omated message] The = Basophils #) system which generated this result tra nsmitted reference range : <=0.2. The reference r shaylee was not used to int erpret this result as normal/abnormal . [facility] [id number] 03:58:00 Test Item Value Reference Range Interpretation Comments Eosinophils # (test code 0.1 See_Comment [A utomated message] The = Eosinophils #) system whic h generated this result tra nsmitted reference range : <=0.5. The reference r shaylee was not used to int erpret this result as normal/abnormal . [facility] [id number] 03:58:00 Test Item Value Reference Range Interpretation Comments Monocytes # (test code 0.6 See_Comment [Aut omated message] The = Monocytes #) system which generated this result tra nsmitted reference range : <=0.8. The reference r shaylee was not used to int erpret this result as normal/abnormal . [facility] [id number] 03:58:00 Test Item Value Reference Range Interpretation Comments Lymphocytes # (test code = Lymphocytes 2.0 1.0-5.5 #) [facility] [id number] 03:58:00 Test Item Value Reference Range Interpretation Comments Segs (test code = Segs) 75.7 45.0-75.0 [facility] [id number] 03:58:00 Test Item Value Reference Range Interpretation Comments Lymphocytes (test code = Lymphocytes) 17.8 20.0-40.0 [facility] [facility] [id number] 03:58:00 Test Item Value Reference Range Interpretation Comments Segs-Bands # (test code = Segs-Bands #) 8.7 1.5-8.1 [facility] [id number] 03:58:00 Test Item Value Reference Range Interpretation Comments Eosinophils (test code = 0.8 See_Comment [A utomated message] The Eosinophils) system which ge nerated this result tra nsmitted reference range : <=4.0. The reference r shaylee was not used to int erpret this result as normal/abnormal . [facility] [id number] 03:58:00 Test Item Value Reference Range Interpretation Comments Basophils (test code = 0.3 See_Comment [Aut omated message] The Basophils) system which ge nerated this result tra nsmitted reference range : <=1.0. The reference r shaylee was not used to int erpret this result as normal/abnormal . [facility] [id number] 03:58:00 Test Item Value Reference Range Interpretation Comments Monocytes (test code = Monocytes) 5.4 2.0-12.0 [facility] [id number] 03:58:00 Test Item Value Reference Range Interpretation Comments RBC (test code = RBC) 5.74 4.70-6.10 [facility] [id number] 03:58:00 Test Item Value Reference Range Interpretation Comments WBC (test code = WBC) 11.5 3.7-10.4 [facility] [id number] 03:58:00 Test Item Value Reference Range Interpretation Comments Hgb (test code = Hgb) 17.3 14.0-18.0 [facility] [id number] 03:58:00 Test Item Value Reference Range Interpretation Comments MCH (test code = MCH) 30.1 pg 27.0-31.0 [facility] [id number] 03:58:00 Test Item Value Reference Range Interpretation Comments MCHC (test code = MCHC) 33.4 32.0-36.0 [facility] [id number] 03:58:00 Test Item Value Reference Range Interpretation Comments MCV (test code = MCV) 90.1 80.0-94.0 [facility] [id number] 03:58:00 Test Item Value Reference Range Interpretation Comments Hct (test code = Hct) 51.7 42.0-54.0 [facility] [id number] 03:58:00 Test Item Value Reference Range Interpretation Comments Platelet (test code = Platelet) 278 133-450 [facility] [id number] 03:58:00 Test Item Value Reference Range Interpretation Comments MPV (test code = MPV) 9.2 7.4-10.4 [facility] [id number] 03:58:00 Test Item Value Reference Range Interpretation Comments RDW (test code = RDW) 12.9 11.5-14.5 [facility] AND [id number] 03:58:00 Test Item Value Reference Range Interpretation Comments UA Sq Epi (test code = UA Sq Epi) None Seen [facility] AND [id number] 03:58:00 Test Item Value Reference Range Interpretation Comments UA Urobilinogen (test code = UA <=1.0 mg/dL 0.1-1.0 Urobilinogen) [facility] AND [id number] 03:58:00 Test Item Value Reference Range Interpretation Comments UA Color (test code = Light Yellow UA Color) *NA*(10/09/17 9:58 PM) [facility] AND [id number] 03:58:00 Test Item Value Reference Range Interpretation Comments UA Spec Grav (test code = UA Spec 1.014 1 Grav) [facility] AND [id number] 03:58:00 Test Item Value Reference Range Interpretation Comments UA Protein (test code = UA Negative mg/dL Protein) [facility] AND [id number] 03:58:00 Test Item Value Reference Range Interpretation Comments UA pH (test code = UA pH) 8.0 1 5.0-8.0 [facility] AND [id number] 03:58:00 Test Item Value Reference Range Interpretation Comments UA Turbidity (test code Slight *ABN*(10/09/17 = UA Turbidity) 9:58 PM) [facility] AND [id number] 03:58:00 Test Item Value Reference Range Interpretation Comments UA Glucose (test code = UA Negative mg/dL Glucose) [facility] AND [id number] 03:58:00 Test Item Value Reference Range Interpretation Comments UA Ketones (test code = UA Negative mg/dL Ketones) [facility] AND [id number] 03:58:00 Test Item Value Reference Range Interpretation Comments UA Bili (test code = Negative *NA*(10/09/17 UA Bili) 9:58 PM) [facility] AND [id number] 03:58:00 Test Item Value Reference Range Interpretation Comments UA Blood (test code = Negative (10/09/17 9:58 UA Blood) PM) [facility] AND [id number] 03:58:00 Test Item Value Reference Range Interpretation Comments UA Nitrite (test code Negative (10/09/17 9:58 = UA Nitrite) PM) [facility] AND [id number] 03:58:00 Test Item Value Reference Range Interpretation Comments UA RBC (test code = 1 See_Comment [Automa marilu message] The UA RBC) system which wireWAX nerated this result transmit marilu reference range : <=2. The reference range was not used to interpr et this result as stefanie l/abnormal. [facility] AND [id number] 03:58:00 Test Item Value Reference Range Interpretation Comments UA Leuk Est (test Negative (10/09/17 9:58 code = UA Leuk Est) PM) [facility] AND [id number] 03:58:00 Test Item Value Reference Range Interpretation Comments UA WBC (test code = 2 See_Comment [Automa marilu message] The UA WBC) system which wireWAX nerated this result transmit marilu reference range : <=5. The reference range was not used to interpr et this result as stefanie l/abnormal. [facility] FACIAL W/O [id number] 18:23:12CT FACIAL BONES WITHOUT CONTRASTHISTORY: Injury, closed head injuryTECHNIQUE: CT imaging of the facial bones was obtained. Coronal and sagittalreformats were provided. The images were reviewed in the soft tissue and bonewindows. One or more of the following dose reduction techniques were used:Automated exposure control, adjustment of the mA and/or kV according to patientsize, and/or utilization of iterative reconstruction technique. FINDINGS:Facial bones: No facial bone fracture is identified.Other structures: There is no air-fluid level within the nasal sinuses tosuggest an occult fracture. Mild mucosal thickening is seen in the ethmoid aircells. The mandibular and bilateral temporomandibular joints appear normal. Thebilateral mastoids appear unremarkable. Both globes, extraocular muscles,optic nerves, and retrobulbar fat appear normal. The visualized upperaerodigestive tract appears normal. Disc space narrowing is noted at C3-4 andC5-6.IMPRESSION:No facial bone fracture is identified.Location: D4CT HEAD W/O [id number] 18:07:09Location code: [id number]: Closed head injury.COMMENT:Axial imaging of the patient's brain was obtained without IV contrast. Softtissue and bone window images were provided. No priorsDose lowering technique with automatic exposure control utilized.There is no evidence for acute mass effect, midline shift, hemorrhage, orherniation. The ventricles, sulci, and cisterns within normal limits. No intraor extra-axial fluid collections.The bone-windowing examination demonstrates no focal bony abnormalities. Noabnormality within the sinuses.IMPRESSION: No acute intracranial findings.[employer] [id number] 07:39:00 Test Item Value Reference Range Interpretation Comments Culture Observations NO BETA HEMOLYTIC (test code = COB1) STREPTOCOCCUS ISOLATED Direct Exam (test code NEGATIVE FOR STREP A = DE1) ANTIGEN BASIC METABOLIC [id number] 16:07:00 Test Item Value Reference Range Interpretation Comments GLUCOSE (test code = 06D) 96 mg/dL 75-100 SODIUM (test code = 01A) 136 mmol/L 136-145 POTASSIUM (test code = 01B) 4.3 mmol/L 3.6-5.1 CHLORIDE (test code = 04A) 100 mmol/L 98-107 CO2 (test code = 02A) 31 mmol/L 22-32 ANION GAP (test code = ANG) 9.3 mmol/L BUN (test code = 05D) 10 mg/dL 7-18 CREATININE (test code = 03E) 0.8 mg/dL 0.7-1.3 BUN/CREA (test code = BCR) 13 12-20 CALCIUM (test code = 09D) 9.5 mg/dL 8.3-9.5 PRO TIME AND [id number] 15:55:00 Test Item Value Reference Range Interpretation Comments PT (test code = 12.9 s 9.8-13.6 TT) INR (test code = 1.2 INR) INRH (test code = SUGGESTED THERAPEUTIC INRH) RANGE FOR INR: 2.5 - 3.5 For Patients with Prosthetic Valves or Patients with recurrent Thromboembolic Events 2.0 - 3.0 For Most Other Applications PTT (test code = 27.9 s 20.2-38.0 PTT) PTTH (test code = To monitor the PTTH) effectiveness of heparin, we offer the Anti-Xa (Heparin Assay). It can be used for either unfractionated or LMW Heparin. Order Code is ANTI-XA CBC (INCLUDES AUTOMATED DIFFERENTIAL)2017-08-28 15:51:00 Test Item Value Reference Range Interpretation Comments WBC (test code = WBC) 9.6 10\S\3/uL 4.5-13.0 RBC (test code = RBC) 5.31 10\S\6/uL 4.10-5.20 H HGB (test code = HBG) 16.1 g/dL 11.5-15.5 H HCT (test code = HCT) 47.1 % 35.0-45.0 H MCV (test code = MCV) 88.7 fL 77.0-95.0 MCH (test code = MCH) 30.3 pg 25.0-33.0 MCHC (test code = MCHC) 34.2 g/dL 31.0-37.0 RDW (test code = RDW) 11.7 % 11.5-14.5 PLT (test code = PLT) 290 10\S\3/uL 130-400 MPV (test code = MPV) 11.4 fL 9.4-12.4 NEUTROP # (test code = NE#) 7.0 10\S\3/uL 2.0-8.0 LYMPH # (test code = LY#) 1.8 10\S\3/uL 1.2-4.0 MONOCYTE # (test code = MO#) 0.6 10\S\3/uL 0.0-1.1 EOSINOPH # (test code = EO#) 0.0 10\S\3/uL 0.0-0.7 BASOPHIL # (test code = BA#) 0.0 10\S\3/uL 0.0-0.3 IG # (test code = IG#) 0.03 10\S\3/uL 0.00-0.06 NRBC # (test code = NRBC#) 0.00 10\S\3/uL 0.00-0.01 NEUTROPH % (test code = NE%) 73.3 % 35.0-73.0 H LYMPH % (test code = LY%) 19.1 % 20.0-55.0 L MONO % (test code = MO%) 6.5 % 2.5-10.0 EOSINOPH % (test code = EO%) 0.4 % 0.0-5.0 BASOPHIL % (test code = BA%) 0.4 % 0.0-2.0 IG % (test code = IG%) 0.3 % 0.0-0.8 NRBC% (test code = NRBC%) 0.0 % 0.0-0.2 MANDIFF (test code = MDIFF) NO NO RBC MORPH (test code = RBCMOR) NORMAL Notes Date/Time Note Provider Source 2017-10-09 22:38:35-00:00 CLINICAL HISTORY: Abdominal pain , right upper quadrant pain [facility] [place] EXAM: Right upper quadrant ultrasound 10/09/2017 9:53 PM [employer] Comparisons: none. TECHNIQUE: Utilizing a curve d array transducer, real-time ultrasound evaluation of the right upper quadrant was performed. Color Doppler imaging was used to assess vascular flow. FINDINGS: The liver is normal in size and morphology measuring 16.4 cm in craniocaudal dimension. There is normal echogenicity of the hepatic parenchyma. There are no infiltrating or discrete hepatic masses ident ified. There is normal hepatopedal flow in the m ain portal vein. The gallbladder is well visu alized and distended. The gallbladder wall measures up to 2.0 mm in thickness. There are no shadowing gallstones. There is no pericholecystic fluid. The patient had a negative ultrasonographic Murp hy's sign. The common bile duct measures 3.0 mm in diameter . Limited images of the pancreas demonstrate no gr oss abnormalities. The proximal aorta measures 1.9 cm. The mid aorta measures 1.7 cm. The distal aorta measures 1.1 cm. There is normal smooth tapering of the abdominal aorta. The IVC is grossly normal in appearance.. The right kidney is normal i n size measuring 10.4 x 6.9 x 4.3 cm. The right renal cortex measures 1.3 cm in thickness. There are no shadowing right renal calculi or ev idence of hydronephrosis. There are no infiltrating or discrete right liban l masses. There is normal echogenicity of the right renal cortex. IMPRESSION: Unremarkable right upper quadrant ultrasound.
[2023-05-06 12:33] LABS: Arterial Blood Carboxyhemoglob 1.1 % (0-1.5); Blood O2 Saturation 97.3 % (92-98.5)
[2023-05-06 12:46] LABS: Absolute Lymphocytes (CBC) 0.7 K/uL (0.7-4.9); Hematocrit 45.2 % (39.6-49.0); Lymphocytes % 19.1 % (15.3-44.8); MCV 91.3 fL (80-100); Platelets 210 thou/uL (152-406); RBC Red Blood Cell Count 4.95 M/uL (4.33-5.43)
[2023-05-06 13:01] LABS: Potassium 3.3 mEq/L (3.5-5.1)
[2023-05-06] MEDS ORDERED: NA CHLORIDE 0.9% 1,000 ML ONE (13:01)
[2023-05-06 13:31] LABS: SARS-CoV-2 Antigen Rapid Res Positive (Negative)
--- NOTE | 2023-05-06 13:48 | ER ---
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 States he woke up in a sweat last night with temp of 101 and was also [facility]. Ebola Screen: No symptoms or risks identified at this time. Initial Sepsis Screen: Does the patient meet any 2 criteria? No. Patient's initial sepsis screen is negative. Does the patient have a suspected source of infection? No. Patient's initial sepsis screen is negative. Risk Assessment: Do you want to hurt yourself or someone else? Patient reports no desire to harm self or others. Onset of symptoms was May 06, 2023. 12:00 Method Of Arrival: Ambulatory 3 12:00 Acuity: KIRSTEN 3 eh3 12:04 Coronavirus screen: Vaccine status: Patient reports being unvaccinated. 3 Triage Assessment: 12:04 General: Appears in no apparent distress. uncomfortable, Behavior is calm, cooperative, eh3 appropriate for age. Pain: Denies pain. Neuro: Level of Consciousness is awake, alert, obeys commands, Oriented to person, place, time, situation. Cardiovascular: Capillary refill < 3 seconds Patient's skin is warm and dry. Respiratory: Airway is patent Respiratory effort is even, unlabored, Respiratory pattern is regular, symmetrical. GI: Abdomen is round non-distended. Derm: Skin is pink, warm \T\ dry. Musculoskeletal: Circulation, motion, and sensation intact. Historical: - Allergies: 12:04 No Known Allergies; eh3 - Immunization history:: Adult Immunizations unknown. - Social history:: Smoking status: Patient denies any tobacco usage or history of. Patient/guardian denies using alcohol. - Family history:: not pertinent. - Hospitalizations: : No recent hospitalization is reported. Screenin:[facility] Risk Assessment (Adult) History of falling in the last 3 months, ph including since admission No falls in past 3 months (0 pts). Abuse screen: Denies threats or abuse. Denies injuries from another. Nutritional screening: No deficits noted. Tuberculosis screening: No symptoms or risk factors identified. Assessment: 13:00 General: Appears in no apparent distress. comfortable, well groomed, Behavior is calm, ph cooperative, agitated. General: Reports fatigue for 1-2 days. Pain: Denies pain. Neuro: Level of Consciousness is awake, alert, obeys commands, Oriented to person, place, time, situation, Reports dizziness. Cardiovascular: Capillary refill < 3 seconds in bilateral fingers Patient's skin is warm and dry. Respiratory: Airway is patent Respiratory effort is even, unlabored. GI: Reports nausea, Patient currently denies diarrhea, vomiting. Derm: Skin is pink, warm \T\ dry. Vital Signs: 12:00 BP 158 / 86; Pulse 76; Resp 18; Temp 99.4(O); Pulse Ox 98% on R/A; Weight 88.45 kg; eh3 Height 5 ft. 6 in. ; Pain 0/10; 14:14 BP 138 / 78; Pulse 74; Resp 18; Temp 97.8; Pulse Ox 99% on R/A; ph 12:00 Body Mass Index 31.47 (88.45 kg, 167.64 cm) eh3 12:00 Pain Scale: Adult 3 ED Course: 11:57 Patient arrived in ED. rg4 12:04 Triage completed. eh3 12:04 Arm band placed on. eh3 12:05 Aldo Dela Cruz MD is Attending Physician. rn 12:42 Mechelle Lugo RN is Primary Nurse. ph 13:06 Strep Sent. ph 13:06 SARS RAPID Sent. ph 13:06 Flu Sent. ph 14:12 Patient has correct armband on for positive identification. Bed in low position. Call ph light in reach. Pulse ox on. NIBP on. 14:13 No provider procedures requiring assistance completed. IV discontinued, intact, ph bleeding controlled, No redness/swelling at site. Pressure dressing applied. Administered Medications: 13:06 Drug: NS 0.9% IV 1000 ml Route: IV; Rate: 1000 ml; Site: left antecubital; ph 14:14 Follow up: Response: No adverse reaction; IV Status: Completed infusion ph Medication: 14:13 VIS not applicable for this client. ph Outcome: 13:47 Discharge ordered by . rn 14:13 Discharged to home ambulatory. ph 14:13 Condition: good 14:13 Discharge instructions given to patient, Instructed on discharge instructions, follow up and referral plans. Demonstrated understanding of instructions, follow-up care. 14:14 Patient left the ED. ph Signatures: Aldo Dela Cruz MD MD rn Hall, Patricia, RN RN [facility] Martha Lugo RN RN 3 Corrections: (The following items were deleted from the chart) 12:05 12:04 Immunization history: Adult Immunizations up to date, 3 3
--- NOTE | 2023-05-06 13:48 | EDPHYS ---
Physician Documentation [facility] Name: Hugo Hurley Age: 22 yrs Sex: Male : 2000 Arrival Date: 05/06/2023 Time: 11:55 Bed 20 Private MD: ED Physician Aldo Dela Cruz HPI: 05/06 13:02 This 22 yrs old Male presents to ER via Ambulatory with complaints of doesnt feel well. rn 13:02 Pt reports not feeling well since yesterday, was feeling generalized weakness, rn headache, fatigue. 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 REports fever at home. No cough/sob/abd pain/vomiting/diarrhea/congestion/neck pain. Feels much better today, needs work note to return.. Onset: The symptoms/episode began/occurred yesterday. Severity of symptoms: At their worst the symptoms were moderate in the emergency department the symptoms have improved. The patient has not experienced similar symptoms in the past. The patient has not recently seen a physician. Historical: - Allergies: 12:04 No Known Allergies; eh3 - Immunization history:: Adult Immunizations unknown. - Social history:: Smoking status: Patient denies any tobacco usage or history of. Patient/guardian denies using alcohol. - Family history:: not pertinent. - Hospitalizations: : No recent hospitalization is reported. ROS: 13:02 Constitutional: + fever Eyes: Negative for injury, pain, redness, and discharge, ENT: rn Negative for injury, pain, and discharge, Neck: Negative for injury, pain, and swelling, Cardiovascular: Negative for chest pain, palpitations, and edema, Respiratory: Negative for shortness of breath, cough, wheezing, and pleuritic chest pain, Abdomen/GI: Negative for abdominal pain, nausea, vomiting, diarrhea, and constipation, MS/Extremity: Negative for injury and deformity, Skin: Negative for injury, rash, and discoloration, Neuro: Negative for numbness, tingling, and seizure Exam: 13:02 Constitutional: This is a well developed, well nourished patient who is awake, alert, rn and in no acute distress. Head/Face: Normocephalic, atraumatic. Eyes: Pupils equal round and reactive to light, extra-ocular motions intact. ENT: dry MM Cardiovascular: Regular rate and rhythm. No pulse deficits. Respiratory: No increased work of breathing, no retractions or nasal flaring. Abdomen/GI: Soft, non-tender Skin: Warm, dry MS/ Extremity: Pulses equal, no cyanosis. Neuro: Awake and alert, GCS 15, oriented to person, place, time, and situation. Cranial nerves II-XII grossly intact. Motor strength 5/5 in all extremities. Sensory grossly intact. Cerebellar exam normal. Normal gait. Vital Signs: 12:00 BP 158 / 86; Pulse 76; Resp 18; Temp 99.4(O); Pulse Ox 98% on R/A; Weight 88.45 kg; eh3 Height 5 ft. 6 in. ; Pain 0/10; 14:14 BP 138 / 78; Pulse 74; Resp 18; Temp 97.8; Pulse Ox 99% on R/A; ph 12:00 Body Mass Index 31.47 (88.45 kg, 167.64 cm) eh3 12:00 Pain Scale: Adult eh3 MDM: 12:05 Patient medically screened. rn 13:46 Differential Diagnosis flu, COVID, viral syndrome, heat exhaustion. Data reviewed: rn vital signs, nurses notes, lab test result(s), and as a result, I will discharge patient. Counseling: I had a detailed discussion with the patient and/or guardian regarding: the historical points, exam findings, and any diagnostic results supporting the discharge/admit diagnosis, lab results, the need for outpatient follow up, to return to the emergency department if symptoms worsen or persist or if there are any questions or concerns that arise at home. Special discussion: I discussed with the patient/guardian in detail that at this point there is no indication for admission to the hospital. It is understood, however, that if the symptoms persist or worsen the patient needs to return immediately for re-evaluation. 05/06 12:10 Order name: ABG rn 05/06 12:10 Order name: CBC with Diff; Complete Time: : rn 05/06 12:10 Order name: Basic Metabolic Panel; Complete Time: 13: rn 05/06 12:10 Order name: Flu; Complete Time: 13:33 rn 05/06 12:10 Order name: SARS RAPID; Complete Time: 13: rn 05/06 12:10 Order name: Strep rn 05/06 12:34 Order name: ABG Arterial Blood Gas; Complete Time: 13:02 [facility] 05/06 13:34 Order name: Throat Culture [facility] 05/06 12:10 Order name: IV Start; Complete Time: 12:44 rn Administered Medications: 13:06 Drug: NS 0.9% IV 1000 ml Route: IV; Rate: 1000 ml; Site: left antecubital; ph 14:14 Follow up: Response: No adverse reaction; IV Status: Completed infusion ph Disposition Summary: 05/06/23 13:47 Discharge Ordered Location: Home rn Problem: new rn Symptoms: have improved rn Condition: Stable rn Diagnosis - SARS-associated coronavirus as the cause of diseases classified elsewhere rn Followup: rn - With: Private Physician - When: As needed - Reason: Recheck today's complaints, Re-evaluation by your physician Discharge Instructions: - Discharge Summary Sheet rn - COVID-19 rn - Viral Illness, Adult rn Forms: - Medication Reconciliation Form rn - Thank You Letter 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
[2023-05-06 14:43] VITALS: BP 138/78; TEMP 97.8; O2SAT 99
== END 2023-05-06 14:14 | disposition home or self-care (01) ==
LOC: ER 11:55
DX: U07.1 COVID-19 (principal)
CPT/HCPCS: 87070; 85025; 80048; 36415; 87081; 87804 ×2; 82805; 96360; 99284; 87811; J7030

== ENCOUNTER 2023-05-13 15:29 | Emergency (ER) | payer OTHER ==
--- OUTSIDE RECORDS SUMMARY | 2023-05-13 15:35 | XMS REPORT | Continuity of Care Document ---
:[address] [facility] t Address [address] [facility] [address] [place] [address] Care Team Providers Name Role Phone JOANIE IZAGUIRRE Attending Clinician Unavailable ZINA SON Attending Clinician [phone] ABDIRIZAK LAM Attending Clinician Unavailable ABDIRIZAK LAM Attending Clinician [phone] [facility], PROVIDER Attending Clinician Unavailable TREY CORREA Attending Clinician [phone] Robin Dempsey Attending Clinician [facility], NURSE Attending Clinician Unavailable Donte Buitrago Attending Clinician DR JAZMIN MAYEN Attending Clinician Unavailable DR SHARON MAYEN Attending Clinician Unavailable ANDREW VAIL Attending Clinician Unavailable TATA JARAMILLO Attending Clinician [phone] DR JAZMIN MAYEN Admitting Clinician Unavailable DR SHARON MAYEN Admitting Clinician Unavailable ANDREW VAIL Admitting Clinician Unavailable Problems Condition Condition Condition Status Onset Resolution Last Treating Co mments Source Name Details Category Date Date Treatment Clinician Date Nausea Nausea Problem 2018-01-15 Aldo naye 01/15/2018 21:29:45 l Sugar [place] Attention- Attention Problem 2018-01-15 Memoria deficit -deficit 21:29:45 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 rmann ity ity disorder, disorder, unspecifie unspecifie d type d type 01/15/2018 Leiter Heart Heart Problem Resolve 2018-02-27 Aldo naye murmur murmur d 11:47:12 l (observabl (observabl He rmann e entity) e entity) Resolved Problem 02/27/2018 [facility], Leiter Attention Problem Active 2018-02-27 Me moria deficit Attention 11:47:12 l hyperactiv deficit Amy nn ity hyperactiv disorder ity (disorder) disorder (disorder) Active Problem 02/27/2018 Medical Group, Leiter Migraine Migraine Problem Active 2018-02-27 Memoria (disorder) (disorder) 11:47:12 l Active Deric Problem 02/27/2018 Medical Group, Leiter Epigastric Epigastri Problem 2018-01-15 Memoria pain c pain 21:29:45 l 01/15/2018 Kelvin patrick Leiter History of Past Illness Condition Condition Condition Status Onset Resolution Last Treating Co mments Source Name Details Category Date Date Treatment Clinician Date Right Right Problem 2018-01-15 2018-01-15 M emoria upper upper 10-16 21:29:45 21:29:45 l quadrant quadrant 04:50: Kelvin patrick pain pain 33 10/16/2017 01/15/2018 Leiter Unspecifie Unspecifi Problem 2018-01-15 2018-01-15 Memoria d ed 1-10 21:29:45 21:29:45 l abdominal abdominal 06:00: Herm rajiv pain pain 00 10/09/2017 01/15/2018 Leiter Allergies, Adverse Reactions, Alerts Allergy Allergy Status Severity Reaction(s) Onset Inactive Treating Comm ents Source Name Type Date Date Clinician Bactrisheila Bactrim Active Chun Leos NKFA NKFA Active Chun Leos Social History Social Habit Start Date Stop Date Quantity Comments Source Sex Assigned At Male [facility] Social History 2017-10-21 2017-10-21 Quin avila 17:09:32 17:09:32 Smoking Status Start Date Stop Date Source Unknown if ever smoked [facility] Medications Ordered Filled Start Stop Current Ordering Indication Dosage Frequency Signature Comments Components Source Medication Medication Date Date Medication? Clinician (SIG) Name Name GI cocktail No Notes: Aldo naye 1-11 G.I. 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 MARKER, Stop date: 10/09/17 21:53:00 BUTTONHOLE MARKER Immunizations Ordered Filled Date Status Comments Source [...] By CHULA ; Source: New Immunization Record HPV 2017-03-31 Completed Note: HPV [facility] 4 VACCINE-75 By 00:00:00 CHULA ; Source: New Immunization Record HPV 2017-03-31 Completed Note: HPV [facility] 4 VACCINE-75 By 00:00:00 MAHERNAN ; Source: New Immunization Record HPV 2017-03-31 Completed Note: HPV [facility] 4 VACCINE-75 By 00:00:00 MAHERNAN ; Source: New Immunization Record HPV 2017-03-31 Completed Note: HPV [facility] 4 VACCINE-75 By 00:00:00 MAHERNAN ; Source: New Immunization Record HPV 2017-03-31 Completed Note: HPV [facility] 4 VACCINE-75 By 00:00:00 MAHERNAN ; Source: New Immunization Record HPV 2016-11-29 [...] Note: HPV [facility] 4 VACCINE-75 By 00:00:00 [facility] ; Source: New Immunization Record HPV 2016-10-01 Completed Note: HPV [facility] 4 VACCINE-75 By 00:00:00 [facility] ; Source: New Immunization Record HPV 2016-10-01 Completed Note: HPV [facility] 4 VACCINE-75 By 00:00:00 [facility] ; Source: New Immunization Record HPV 2016-10-01 Completed Note: HPV [facility] 4 VACCINE-75 By 00:00:00 [facility] ; Source: New Immunization Record HPV 2016-10-01 Completed Note: HPV [facility] 4 VACCINE-75 By 00:00:00 [facility] ; Source: New Immunization Record Meningococcal 2016-05-02 [...] mm[Hg] [facility] 2018-04-15 15:03:00 73 mm[Hg] [facility] Diastolic Heart Beat 2018-04-15 15:03:00 62 /min [facility] Body Temperature 2018-04-15 15:03:00 98.50 [degF] [facility] Respiratory Rate 2018-04-15 15:03:00 22 /min [facility] Body mass index 2018-04-15 15:03:00 23.60 kg/m2 [facility] Body height 2018-04-15 15:03:00 65.00 [in_us] [facility] Patient Body Weight 2018-04-15 15:03:00 142.12 [lb_av] [facility] Body height 2017-11-01 14:23:00 65.00 [in_us] [facility] Patient Body Weight 2017-11-01 14:23:00 154.00 [lb_av] [facility] Systolic 2017-11-01 14:23:00 130 mm[Hg] [facility] 2017-11-01 14:23:00 71 mm[Hg] [facility] Diastolic Heart Beat 2017-11-01 14:23:00 69 /min [facility] Body Temperature 2017-11-01 14:23:00 98.10 [degF] [facility] Respiratory Rate 2017-11-01 14:23:00 18 /min [facility] Body mass index 2017-11-01 14:23:00 25.60 [facility]/m[facility] 2017-10-10 05:55:00 [facility] Temperature Oral (F) 2017-10-10 05:55:00 98 F [facility] [place] Respitory Rate 2017-10-10 05:55:00 Memori al [place] Systolic (mm Hg) 2017-10-10 05:55:00 Aldo rial Deric Diastolic (mm Hg) 2017-10-10 05:55:00 Mem orial Deric Temperature Oral (F) 2017-10-10 05:23:00 98 F [facility] [place] Respitory Rate 2017-10-10 05:23:00 Memori al Deric Heart Rate 2017-10-10 05:23:00 [facility] [place] Systolic (mm Hg) 2017-10-10 05:23:00 Aldo rial [place] Diastolic (mm Hg) 2017-10-10 05:23:00 Mem orial [place] Respitory Rate 2017-10-10 02:58:00 Memori al [place] Heart Rate 2017-10-10 02:58:00 [facility] [place] Temperature Oral (F) 2017-10-10 02:58:00 97.9 F [facility] Deric Weight 2017-10-10 02:58:00 [facility] Deric Systolic (mm Hg) 2017-10-10 02:58:00 Aldo rial [place] Diastolic (mm Hg) 2017-10-10 02:58:00 Mem orial Deric Body height 2017-10-09 14:10:00 65.00 [in_us] [facility] Patient Body Weight 2017-10-09 14:10:00 151.25 [lb_av] [facility] Sy[facility] 2017-10-09 14:10:00 144 mm[Hg] [facility] 2017-10-09 14:10:00 97 mm[Hg] [facility] Diastolic Heart Beat 2017-10-09 14:10:00 78 /min [facility] Body Temperature 2017-10-09 14:10:00 97.50 [degF] [facility] Respiratory Rate 2017-10-09 14:10:00 22 /min [facility] Body mass index 2017-10-09 14:10:00 25.20 [facility] 2017-09-11 09:40:00 64.50 [in_us] [facility] Patient Body Weight 2017-09-11 09:40:00 150.25 [lb_av] [facility] Systolic 2017-09-11 09:40:00 130 mm[Hg] [facility] 2017-09-11 09:40:00 81 mm[Hg] [facility] Diastolic Heart Beat 2017-09-11 09:40:00 65 /min [facility] Body Temperature 2017-09-11 09:40:00 98.10 [degF] [facility] Respiratory Rate 2017-09-11 09:40:00 18 /min [facility] Body mass index 2017-09-11 09:40:00 25.40 kg/m2 [facility] Body height 2017-05-03 16:05:00 64.50 [in_us] [facility] Patient Body Weight 2017-05-03 16:05:00 141.60 [lb_av] [facility] Systolic 2017-05-03 16:05:00 129 mm[Hg] [facility] 2017-05-03 16:05:00 68 mm[Hg] [facility] Diastolic Heart Beat 2017-05-03 16:05:00 73 /min [facility] Body Temperature 2017-05-03 16:05:00 97.90 [degF] [facility] Respiratory Rate 2017-05-03 16:05:00 18 /min [facility] Body mass index 2017-05-03 16:05:00 23.90 kg/m2 [facility] Body height 2017-01-08 16:04:00 64.00 [in_us] [facility] Body Weight 2017-01-08 16:04:00 133.80 [lb_av] [facility] Systolic 2017-01-08 16:04:00 120 mm[Hg] [facility] 2017-01-08 16:04:00 77 mm[Hg] [facility] Diastolic Heart Beat 2017-01-08 16:04:00 63 /min [facility] Body Temperature 2017-01-08 16:04:00 98.30 [degF] [facility] Respiratory Rate 2017-01-08 16:04:00 18 /min [facility] Body mass index 2017-01-08 16:04:00 23.00 kg/m2 [facility] Body height 2016-11-07 16:17:00 64.00 [in_us] [facility] Body Weight 2016-11-07 16:17:00 127.25 [lb_av] [facility] Systolic 2016-11-07 16:17:00 114 mm[Hg] [facility] 2016-11-07 16:17:00 80 mm[Hg] [facility] Diastolic Heart Beat 2016-11-07 16:17:00 59 /min [facility] Body Temperature 2016-11-07 16:17:00 97.50 [degF] [facility] Respiratory Rate 2016-11-07 16:17:00 22 /min [facility] Body mass index 2016-11-07 16:17:00 21.80 kg/m2 [facility] Patient Body Weight 2016-10-23 15:37:00 130.00 [lb_av] [facility] Systolic 2016-10-23 15:37:00 131 mm[Hg] [facility] 2016-10-23 15:37:00 76 mm[Hg] [facility] Diastolic Heart Beat 2016-10-23 15:37:00 73 /min [facility] Body Temperature 2016-10-23 15:37:00 97.60 [degF] [facility] Respiratory Rate 2016-10-23 15:37:00 18 /min [facility] Body height 2016-08-01 10:21:00 64.00 [in_us] [facility] Body Weight 2016-08-01 10:21:00 130.00 [lb_av] [facility] Systolic 2016-08-01 10:21:00 128 mm[Hg] [facility] 2016-08-01 10:21:00 62 mm[Hg] [facility] Diastolic Heart Beat 2016-08-01 10:21:00 65 /min [facility] Body Temperature 2016-08-01 10:21:00 96.80 [degF] [facility] Respiratory Rate 2016-08-01 10:21:00 20 /min [facility] Body mass index 2016-08-01 10:21:00 22.30 kg/m2 [facility] Body height 2016-05-30 14:44:00 63.25 [in_us] [facility] Body Weight 2016-05-30 14:44:00 128.60 [lb_av] [facility] Systolic 2016-05-30 14:44:00 131 mm[Hg] [facility] 2016-05-30 14:44:00 84 mm[Hg] [facility] Diastolic Heart Beat 2016-05-30 14:44:00 72 /min [facility] Body Temperature 2016-05-30 14:44:00 97.40 [degF] [facility] Respiratory Rate 2016-05-30 14:44:00 20 /min [facility] Body mass index 2016-05-30 14:44:00 22.60 kg/m2 [facility] Procedures Procedure Date / Time Performed Performing Clinician Sour e Infectious agent detection 2020-07-09 00:00:00 [facility] by nucleic acid (DNA or Tonsillect[facility] and [facility] nn adenoidectomy Encounters Start End Encounter Admission Attending Care Care Encounter Source Date/Time Date/Time Type Type Clinicians Facility Department ID 2021-11-30 2021-11-30 Outpatient JOANIE IZAGUIRRE [facility] [id number] [facility] 13:18:00 13:18:00 ealt 2021-11-30 2021-11-30 Outpatient JOANIE IZAGUIRRE [facility] [id number] [facility] 13:18:00 13:18:00 e2-0li0-35w [id number] [facility] [id number] [id number] 2021-11-29 2021-11-29 Outpatient JOANIE IZAGUIRRE [facility] [id number] [facility] 13:49:00 13:49:00 ealt 2021-11-29 2021-11-29 Outpatient JOANIE IZAGUIRRE [facility] [id number] [facility] 13:49:00 13:49:00 [id number] [id number] [facility] [id number] 2020-07-09 2020-07-09 Outpatient [facility] [id number] Access 08:30:00 08:30:00 [facility] 2020-07-09 2020-07-09 [facility] [id number] [facility] 08:30:00 08:30:00 ABDIRIZAK [facility] 2020-07-09 2020-07-09 Outpatient CAROLE, [facility] [id number] [facility] 08:30:00 08:30:00 ABDIRIZAK Patricia [id number] [facility] [id number] 2020-07-09 2020-07-09 Outpatient [facility] [id number] [facility] 08:30:00 08:30:00 [id number] [facility] [id number] 2018-04-15 2018-04-15 Outpatient CAROLE, [facility] [id number] [facility] 15:03:00 15:03:00 ABDIRIZAK Patricia [id number] [facility] [id number] 0f4 [id number] 2018-04-15 2018-04-15 Outpatient [facility] [id number] [facility] 00:00:00 00:00:00 H, PROVIDER ea [facility] 2018-04-15 2018-04-15 Outpatient [facility] [id number] [facility] 00:00:00 00:00:00 H, PROVIDER [id number] ealt [id number] [id number] 2018-04-15 2018-04-15 Outpatient SUNNY, [facility] [id number] [facility] 00:00:00 00:00:00 TREY [id number] [id number] ealt [id number] 0f4 [id number] 2018-03-18 2018-03-18 Outpatient CAROLE, [facility] [id number] [facility] 00:00:00 00:00:00 ABDIRIZAK Patricia [id number] ealt [id number] 0f4 [id number] 2017-11-21 2017-11-21 Ambulatory nullFlavo [facility] [id number] Memoria 20:20:00 20:20:00 Pre-Reg r Gastroenter 01 l ology Sugar Herm rajiv [facility] 2017-11-21 2017-11-21 Ambulatory nullFlavo [facility] [id number] Memoria 20:20:00 20:20:00 Pre-Reg r Gastroenter 01 l ology Sugar Herm [facility] 2017-11-21 2017-11-21 Outpatient [facility] [id number] Memoria 14:20:00 14:20:00 01 l [place] 2017-11-21 2017-11-21 Outpatient Roselyn, [facility] [id number] 14:20:00 14:20:00 Robin 01 Travon 2017-11-07 2017-11-07 Outpatient CAROLE, [facility] [id number] [facility] 00:00:00 00:00:00 ABDIRIZAK Patricia [id number] [id number] ealt [id number] 0f4 [id number] 2017-11-01 2017-11-01 Outpatient CAROLE, [facility] [id number] [facility] 15:32:00 15:32:00 ABDIRIZAK Patricia e2-3by4-63q [id number] ealt [id number] 2017-11-01 Outpatient [facility] [id number] [facility] 00:00:00 00:00:00 H, PROVIDER ea lth 2017-11-01 2017-11-01 Outpatient [facility] [id number] [facility] 00:00:00 00:00:00 H, PROVIDER e2-5zm2-72j f81-43 f1-8 ealth [id number] [id number] 2017-11-01 2017-11-01 Outpatient CORREA, [facility] [id number] [facility] 00:00:00 00:00:00 TREY e2-1zw8-01e [id number] ealt [id number] [id number] 2017-11-01 2017-11-01 Outpatient [facility] IMM, [facility] [id number] [facility] 00:00:00 00:00:00 NURSE e2-2ut3-67w [id number] ealt [id number] [id number] 2017-10-21 2017-10-21 Outpatient MHIE MHIE [id number] Memoria 10:40:00 10:40:00 00 l Deric 2017-10-21 2017-10-21 Outpatient MHIE MHIE [id number] Memoria 10:40:00 10:40:00 00 l Deric 2017-10-10 2017-10-10 Emergency [facility]Fl[facility] [id number] Memoria 02:45:00 05:59:00 r Deric 00 l Leiter Amy 2017-10-10 2017-10-10 Emergency [facility]Flavo [facility] [id number] Memoria 02:45:00 05:59:00 r [place] 00 l Leiter Amy 2017-10-09 2017-10-09 Outpatient Buitrago, MHSL MHSL [id number] 20:45:00 23:59:00 Donte 00 Rojelio 2017-10-09 2017-10-09 Outpatient LAM, [facility] [id number] [facility] 14:10:00 14:10:00 ABDIRIZAK S e2-1km5-83q [id number] [facility] [id number] 0f4 [id number] 2017-10-09 2017-10-09 Outpatient [facility] [id number] [facility] 00:00:00 00:00:00 H, PROVIDER robert [facility] 2017-10-09 2017-10-09 Outpatient [facility] [id number] [facility] 00:00:00 00:00:00 H, PROVIDER e2-4oq3-50n [id number] [id number] ealth [id number] 2017-09-11 2017-09-11 Outpatient CAROLE, [facility] [id number] [facility] 09:40:00 09:40:00 ABDIRIZAK Patricia e2-6zn4-97f [id number] ealth [id number] [id number] 2017-09-11 2017-09-11 Outpatient [facility] [id number] [facility] 00:00:00 00:00:00 H, PROVIDER ea lt 2017-09-11 2017-09-11 Outpatient [facility] [id number] [facility] 00:00:00 00:00:00 H, PROVIDER e2-5ft0-38y f48-48 fc-8 ealt [id number] 2017-09-08 2017-09-08 Emergency E FAHEEM [facility] [id number] [place] 17:19:00 18:45:[facility] 2017-08-28 2017-08-28 Emergency E SHARON MAYEN [facility] [id number] [place] 15:14:00 16:30:00 Medica l [place] 2017-08-27 2017-08-27 Emergency E GENNA [facility] [id number] [place] 15:20:00 16:10:00 [facility] Medica [facility] 2017-05-06 2017-05-06 Outpatient CAROLE, [facility] [id number] [facility] 00:00:00 00:00:00 ABDIRIZAK Patricia e2-9pv9-08a [id number] -[id number] ealth [id number] [id number] 2017-05-03 2017-05-03 Outpatient CAROLE, [facility] [id number] [facility] 16:05:00 16:05:00 ABDIRIZAK Patricia e2-9qm7-45k [id number] ealt [id number] 0f4 [id number] 2017-05-03 2017-05-03 Outpatient [facility] [id number] [facility] 00:00:00 00:00:00 H, PROVIDER [facility] 2017-05-03 2017-05-03 Outpatient [facility] [id number] [facility] 00:00:00 00:00:00 H, PROVIDER e2-2ah2-70d [id number] [id number] ealt [id number] 2017-04-22 2017-04-22 Outpatient [facility] IMM, [facility] [id number] [facility] 15:12:00 15:12:00 NURSE e2-2qi8-63t [id number] ealt [id number] 0f4 [id number] 2017-04-22 2017-04-22 Outpatient [facility] [id number] [facility] 00:00:00 00:00:00 H, PROVIDER [facility] 2017-04-22 2017-04-22 Outpatient [facility] [id number] [facility] 00:00:00 00:00:00 H, PROVIDER e2-8lo7-89e [id number] ealt [id number] 2017-01-08 2017-01-08 Outpatient LAM, [facility] [id number] [facility] 16:04:00 16:04:00 ABDIRIZAK Patricia e2-8wk7-70q [id number] ealth [id number] 2017-01-08 2017-01-08 Outpatient [facility] [id number] [facility] 00:00:00 00:00:00 H, PROVIDER [facility]bert [facility] 2017-01-08 2017-01-08 Outpatient [facility] [id number] [facility] 00:00:00 00:00:00 H, PROVIDER e2-4bt9-44g [id number] [id number] ealth [id number] 0f4 [id number] 2016-12-21 2016-12-21 Outpatient H IMM, HC [id number] [facility] 15:47:00 15:47:00 NURSE e2-4cm0-54d [id number] ealt [id number] 2016-12-21 2016-12-21 Outpatient [facility] [id number] [facility] 00:00:00 00:00:00 H, PROVIDER [facility] 2016-12-21 2016-12-21 Outpatient [facility] [id number] [facility] 00:00:00 00:00:00 H, PROVIDER e2-9ri6-38t a93-43 f9-a ealth 0-nu4hst087 [id number] 0f4 [id number] 2016-11-07 2016-11-07 Outpatient [facility], [facility] [id number] [facility] 16:17:00 16:17:00 ABDIRIZAK S e2-8fi1-48v f01-95qf -b ealth 0-si6ybu023 [id number] 0f4 e9cbac 2016-11-07 2016-11-07 Outpatient [facility] [id number] [facility] 00:00:00 00:00:00 H, PROVIDER robert [facility] 2016-11-07 2016-11-07 Outpatient [facility] HC [id number] [facility] 00:00:00 00:00:00 H, PROVIDER e2-7vl9-64d c71-46 39-8 ealth 0-ru9rtr350 53c-1cm405 0f4 [id number] 2016-10-25 2016-10-25 Outpatient [facility], [facility] [id number] [facility] 00:00:00 00:00:00 [place] e2-6hb2-09b 1c5-28r7 -9 ealth 0-iv7mvg495 [id number] 0f4 [id number] 2016-10-23 2016-10-23 Outpatient [facility], HC [id number] [facility] 16:06:00 16:06:00 [place] e2-5qh4-13g m6s-4975 -8 ealth 0-dg8itg321 [id number] 0f4 [id number] 2016-10-23 2016-10-23 Outpatient [facility] [id number] [facility] 00:00:00 00:00:00 H, PROVIDER robert [facility] 2016-10-23 2016-10-23 Outpatient [facility] [id number] [facility] 00:00:00 00:00:00 H, PROVIDER e2-1dn2-32c 77e-47 17-9 ealth 0-gj3kcn088 [id number] 0f4 [id number] 2016-10-23 2016-10-23 Outpatient [facility], [facility] [id number] [facility] 00:00:00 00:00:00 ABDIRIZAK Patricia e2-0tn7-95q 3n0-820b -a ealth 0-fi6axb259 [id number]-[id number] 0f4 [id number] 2016-08-01 2016-08-01 Outpatient [facility], HC [id number] [facility] 10:21:00 10:21:00 ABDIRIZAK Patricia e2-4lr7-66l 9v7-0q1m -8 ealth 0-kz2his493 fbd-uyv767 0f4 [id number] 2016-08-01 2016-08-01 Outpatient [facility] [id number] [facility] 00:00:00 00:00:00 H, PROVIDER robert lanza 2016-08-01 2016-08-01 Outpatient [facility] [id number] [facility] 00:00:00 00:00:00 H, PROVIDER e2-2oz9-17n 12a-46 8f-9 ealt 0-ii1gau151 bff-[id number] 0f4 [id number] 2016-07-04 2016-07-04 Outpatient [facility], [facility] [id number] [facility] 00:00:00 00:00:00 TREY e2-2zq7-62a 53d-4b8f-b ealt [id number] [id number] 0f4 [id number] 0341-09-01 2016-05-31 Outpatient [facility] [id number] [facility] 00:00:00 00:00:00 TREY e2-8fk8-69p 4h1-7k5a-4 [facility] 0-[id number] [id number] 0f4 [id number] 2016-05-30 2016-05-30 Outpatient [facility] [id number] [facility] 15:21:00 15:21:00 TREY e2-9om6-15u 3t3-3ka7-3 [facility] 0-ys1kfq709 [id number] 0f4 [id number] 2016-05-30 2016-05-30 Outpatient [facility] [id number] [facility] 00:00:00 00:00:00 H, PROVIDER robert lanza 2016-05-30 2016-05-30 [facility]patient [facility] [id number] [facility] 00:00:00 00:00:00 H, PROVIDER e2-6av6-78l de1-46 51-b ealt 0-[id number] [id number] 0f4 [id number] 2016-05-29 2016-05-29 Outpatient [facility] [id number] [facility] 00:00:00 00:00:00 H, PROVIDER robert lanza 2016-05-29 2016-05-29 [facility] [id number] [facility] 00:00:00 00:00:00 H, PROVIDER jacqueline-6qq7-28z 8bc-4b 2c-b [facility] 0-[id number] 0f4 [id number] 2015-08-02 2015-08-02 Outpatient [facility] [id number] [facility] 00:00:00 00:00:00 H, PROVIDER robert [facility] 2015-08-02 2015-08-02 Outpatient [facility] [id number] [facility] 00:00:00 00:00:00 H, PROVIDER jacqueline-3tv3-48g 74b-45 d0-8 [facility] 0-[id number] 0f4 [id number] 2015-01-18 2015-01-18 Outpatient [facility] [id number] [facility] 00:00:00 00:00:00 H, PROVIDER robert [facility] 2015-01-18 2015-01-18 Outpatient [facility] [id number] [facility] 00:00:00 00:00:00 H, PROVIDER jacqueline-3cj3-92f 9a5-4d 77-a [facility] 0-[id number] 0f4 [id number] 2014-10-06 2014-10-06 Outpatient [facility] [id number] [facility] 00:00:00 00:00:00 H, PROVIDER robert [facility] 2014-10-06 2014-10-06 [facility] [id number] [facility] 00:00:00 00:00:00 H, PROVIDER vida9ks6-22i e9a-42 ac-b [facility] [id number] 0f4 [id number] 2014-07-21 2014-07-21 Outpatient [facility] [id number] [facility] 00:00:00 00:00:00 H, PROVIDER robert [facility] 2014-07-21 2014-07-21 [facility] [id number] [facility] 00:00:00 00:00:00 H, PROVIDER vida3pb9-08o 3c2-44 dc-b [facility] [id number] 0f4 [id number] 2014-01-19 2014-01-19 Outpatient [facility] [id number] [facility] 00:00:00 00:00:00 H, PROVIDER robert [facility] 2014-01-19 2014-01-19 [facility] [id number] [facility] 00:00:00 00:00:00 H, PROVIDER vida6gs9-83t 20e-47 88-8 [facility] 0-[id number] 0f4 [id number] 2013-10-22 2013-10-22 Outpatient [facility] [id number] [facility] 00:00:00 00:00:00 H, PROVIDER robert [facility] 2013-10-22 2013-10-22 [facility] [id number] [facility] 00:00:00 00:00:00 H, PROVIDER jacqueline-9bw8-43t 08e-4b f8-8 [facility] 0-[id number] 0f4 [id number] 2013-02-20 2013-02-20 Outpatient [facility] [id number] [facility] 00:00:00 00:00:00 H, PROVIDER robert [facility] 2013-02-20 2013-02-20 Out[facility] [id number] [facility] 00:00:00 00:00:00 H, PROVIDER vida2pw8-68c a67-40 62-b [facility] 0-am9gzj252 [id number] 0f4 [id number] 2012-05-15 2012-05-15 Outpatient [facility] [id number] [facility] 00:00:00 00:00:00 H, PROVIDER robert odell 2012-05-15 2012-05-15 Out[facility] [id number] [facility] 00:00:00 00:00:00 H, PROVIDER ivda3yq6-93f 609-43 5f-b [facility] 0-[id number] 0f4 [id number] 2012-04-28 2012-04-28 Outpatient [facility] [id number] [facility] 00:00:00 00:00:00 H, PROVIDER robert odell 2012-04-28 2012-04-28 Out[facility] [id number] [facility] 00:00:00 00:00:00 H, PROVIDER vida9ur9-90v b8f-45 1f-b [facility] 0-[id number] [id number] 0f4 [id number] 2012-04-23 2012-04-23 Outpatient [facility] [id number] [facility] 00:00:00 00:00:00 H, PROVIDER robert odell 2012-04-23 2012-04-23 Outpatient [facility] [id number] [facility] 00:00:00 00:00:00 H, PROVIDER vida2zr1-99p e7b-45 c1-8 [facility] 0-[id number] 0f4 [id number] 2012-03-10 2012-03-10 Outpatient [facility] [id number] [facility] 00:00:00 00:00:00 H, PROVIDER robert odell 2012-03-10 2012-03-10 Out[facility] [id number] [facility] 00:00:00 00:00:00 H, PROVIDER vida9kh8-45y 802-4b 84-b [facility] 0-[id number] 0f4 [id number] 2012-03-06 2012-03-06 Outpatient [facility] [id number] [facility] 00:00:00 00:00:00 H, PROVIDER robert lanza 2012-03-06 2012-03-06 Out[facility] [id number] [facility] 00:00:00 00:00:00 H, PROVIDER vida6uu1-72h c2b-43 0a-9 [facility] [id number] 0f4 [id number] 2011-09-27 2011-09-27 Outpatient [facility] [id number] [facility] 00:00:00 00:00:00 H, PROVIDER robert [facility] 2011-09-27 2011-09-27 Outpatient [facility] [id number] [facility] 00:00:00 00:00:00 H, PROVIDER vida8kl9-45i 55e-4b c8-9 [facility] [id number] 0f4 [id number] 2011-09-11 2011-09-11 Outpatient [facility] [id number] [facility] 00:00:00 00:00:00 H, PROVIDER robert [facility] 2011-09-11 2011-09-11 Outpatient [facility] [id number] [facility] 00:00:00 00:00:00 H, PROVIDER vida1co9-22r 6ab-4a 18-9 [facility] 0-[id number] 0f4 [id number] 2011-08-09 2011-08-09 Outpatient [facility] [id number] [facility] 00:00:00 00:00:00 H, PROVIDER robert odell 2011-08-09 2011-08-09 Outpatient [facility] [id number] [facility] 00:00:00 00:00:00 H, PROVIDER vida4xx8-57m 060-43 1a-b [facility] 0-[id number] [id number] 0f4 [id number] 2011-02-16 2011-02-16 Outpatient [facility] [id number] [facility] 00:00:00 00:00:00 H, PROVIDER robert odell 2011-02-16 2011-02-16 Outpatient [facility] [id number] [facility] 00:00:00 00:00:00 H, PROVIDER jacqueline-6sg7-21m 1ff-44 04-9 [facility] 0-[id number] 0f4 [id number] 2010-11-15 2010-11-15 Outpatient [facility] [id number] [facility] 00:00:00 00:00:00 H, PROVIDER robert [facility] 2010-11-15 2010-11-15 Outpatient [facility] [id number] [facility] 00:00:00 00:00:00 H, PROVIDER vida8kl0-56x 00c-4f 98-b [facility] 0-[id number] 0f4 [id number] 2010-09-13 2010-09-13 Outpatient [facility] [id number] [facility] 00:00:00 00:00:00 H, PROVIDER robert [facility] 2010-09-13 2010-09-13 Outpatient [facility] [id number] [facility] 00:00:00 00:00:00 H, PROVIDER vida0sy1-68z 5d1-41 26-8 [facility] [id number] 0f4 [id number] 2010-07-27 2010-07-27 Outpatient [facility] [id number] [facility] 00:00:00 00:00:00 H, PROVIDER robert odell 2010-07-27 2010-07-27 Outpatient [facility] [id number] [facility] 00:00:00 00:00:00 H, PROVIDER vida7we2-76r de1-42 73-a [facility] 0-[id number] [id number] 0f4 [id number] 2010-05-08 2010-05-08 Outpatient [facility] [id number] [facility] 00:00:00 00:00:00 H, PROVIDER robert odell 2010-05-08 2010-05-08 Outpatient [facility] [id number] [facility] 00:00:00 00:00:00 H, PROVIDER e2-6he4-09m b9f-47 58-8 [facility] [id number] 0f4 [id number] 2009-07-26 2009-07-26 Outpatient [facility] [id number] [facility] 00:00:00 00:00:00 H, PROVIDER robert [facility] 2009-07-26 2009-07-26 Outpatient [facility] [id number] [facility] 00:00:00 00:00:00 H, PROVIDER e2-3wm0-00t 760-49 0b-b [facility] 0-[id number] 0f4 [id number] 2009-06-28 2009-06-28 Outpatient [facility] [id number] [facility] 00:00:00 00:00:00 H, PROVIDER robert [facility] 2009-06-28 2009-06-28 Outpatient [facility] [id number] [facility] 00:00:00 00:00:00 H, PROVIDER jacqueline-0dr9-54a b19-48 0c-b [facility] 0-[id number] [id number] 0f4 [id number] 2009-05-24 2009-05-24 Outpatient [facility] [id number] [facility] 00:00:00 00:00:00 H, PROVIDER robert [facility] 2009-05-24 2009-05-24 Outpatient [facility] [id number] [facility] 00:00:00 00:00:00 H, PROVIDER e2-7nt3-95o e00-4b 2e-b [facility] 0-eg1jso236 [id number] 0f4 [id number] 2009-05-17 2009-05-17 Outpatient [facility] [id number] [facility] 00:00:00 00:00:00 H, PROVIDER robert odell 2009-05-17 2009-05-17 Outpatient [facility] [id number] [facility] 00:00:00 00:00:00 H, PROVIDER e2-7vf4-30i bcb-45 f9-9 [facility] 0-[id number] 0f4 [id number] 2009-04-18 2009-04-18 Outpatient [facility] [id number] [facility] 00:00:00 00:00:00 H, PROVIDER robert odell 2009-04-18 2009-04-18 Outpatient [facility] [id number] [facility] 00:00:00 00:00:00 H, PROVIDER jacqueline-0jc0-90r df2-4c 9d-b [facility] 0-[id number] 0f4 [id number] 2009-03-11 2009-03-11 Outpatient [facility] [id number] [facility] 00:00:00 00:00:00 H, PROVIDER robert odell 2009-03-11 2009-03-11 Outpatient [facility] [id number] [facility] 00:00:00 00:00:00 H, PROVIDER jacqueline-3aa9-38g e3a-43 74-9 [facility] 0-[id number] 0f4 [id number] 2009-02-14 2009-02-14 Outpatient [facility] [id number] [facility] 00:00:00 00:00:00 H, PROVIDER robert odell 2009-02-14 2009-02-14 Out[facility] [id number] [facility] 00:00:00 00:00:00 H, PROVIDER e2-3cw4-68t cf2-48 91-9 [facility] 0-[id number] [id number] 0f4 [id number] 2009-01-28 2009-01-28 Outpatient [facility] [id number] [facility] 00:00:00 00:00:00 H, PROVIDER robert lanza 2009-01-28 2009-01-28 Out[facility] [id number] [facility] 00:00:00 00:00:00 H, PROVIDER e2-2vg5-29u 572-44 b2-b [facility] 0-[id number] [id number] 0f4 [id number] Results Test Description Test Time Test Comments Results Result Comments Source Panel Description: SARS-CoV-2 (COVID-19) RNA [Presence] in 2 06:49:00 Unspecified specimen by ASHLEY with probe detection Test Item Value Reference Range Interpretation Comme nts SARS-CoV-2, ASHLEY (test Not Detected Not Detected Testin g was performed using the code = 76420-0) reno(R) ELIDIA S-CoV-2 test.This nucleic acid am plification test was developed and i ts performancechar acteristics determined by [employer] [place]. Nucleic acidamp lification tests include PCR and [...] result in this assay.< br/>
Performed by:
[facility] ([facility])

[facility] Description: SARS-CoV-2 (COVID-19) RNA [Presence] in Specimen by ASHLEY with probe [id number] 06:49:00 Test Item Value Reference Range Interpretation Comments SARS-CoV-2 Not Detected Not Detected Testing was per formed using the , ASHLEY reno(R) SARS-C oV-2 test.This (test code nucleic acid am plification test = 60129-4) was developed a nd its performancechar acteristics determined by [employer] [place]. N ucleic acidamplificati on tests include PCR and TMA. Th is test has not been FDAcleared or approved. This test has b een authorized by FDA under anEme rgency Use Authorization ( EUA). This test is only authori weston norris duration of charley e the declaration that circumstan charley existjustifying the authorization o f the emergency use of in vitro diagnostic tests for detection o f SARS-CoV-2 virus and/or di agnosisof COVID-19 infect ion under section 564(b)(1) of e Act, 21 U.S.C.360bbb-3( b) (1), unless [...] in this assay.
<br/ >Performed by:
[facility] ([facility])

[facility] Description: SARS-CoV-2 (COVID-19) RNA [Presence] in Specimen by ASHLEY with probe [id number] 06:49:00 Test Item Value Reference Range Interpretation Comments SARS-CoV-2 Not Detected Not Detected Testing was per formed using the , ASHLEY reno(R) SARS-C oV-2 test.This (test code nucleic acid am plification test = 44474-9) was developed a nd its performancechar acteristics determined by [employer] [place]. N ucleic acidamplificati on tests include PCR [...] COVID-19 infect ion under section 564(b)(1) of e Act, 21 U.S.C.360bbb-3( b) (1), unless [...] in this assay.
<br/ >Performed by:
[facility] ([facility])

[facility] Description: SARS-CoV-2 (COVID-19) RNA [Presence] in Specimen by ASHLEY with probe [id number] 06:49:00 Test Item Value Reference Range Interpretation Comments SARS-CoV-2 Not Detected Not Detected Testing was per formed using the , ASHLEY reno(R) SARS-C oV-2 test.This (test code nucleic acid am plification test = 33014-6) was developed a nd its performancechar acteristics determined by [employer]. [place] [facility] acid[facility]ificati on tests include PCR and TMA. is test has not been FDAcleared or approved. This test has b een authorized by FDA under anEme rgency Use Authorization ( EUA). This test is only authori zeananya forth duration of charley e the declaration that circumstan charley existjustifying the authorization o f the emergency use of in vitro diagnostic tests for detection o f SARS-CoV-2 virus and/or di agnosisof COVID-19 infect ion under section 564(b)(1) of e Act, 21 U.S.C.360bbb-3( b) (1), unless [...] result in this assay.
<br/ >Performed by:
[employer] ([facility])

[facility] Description: SARS-CoV-2 (COVID-19) RNA [Presence] in Unspecified specimen by ASHLEY with probe [id number] 06:49:00 Test Item Value Reference Range Interpretation Comments SARS-CoV-2 Not Detected Not Detected Testing was per formed using the , ASHLEY reno(R) SARS-C oV-2 test.This (test code nucleic acid am plification test = 42974-6) was developed a nd its performancechar acteristics determined by [employer]. [place] [facility] acidamplificati on tests include PCR and TMA. [...] result in this assay.
<br/ >Performed by:
[employer] ([facility])

[id number] 03:58:00 Test Item Value Reference Range Interpretation Comments Lipase Lvl (test code = Lipase Lvl) 111 73-393 [facility]2018-01-11 03:58:00 Test Item Value Reference Range Interpretation Comments eGFR (test code = eGFR) See Comment [facility]2018-01-11 03:58:00 Test Item Value Reference Range Interpretation Comments Albumin Lvl (test code = Albumin Lvl) 5.1 3.5-5.0 [facility]2018-01-11 03:58:00 Test Item Value Reference Range Interpretation Comments Bili Total (test code = Bili Total) 0.5 0.2-1.3 [facility]2018-01-11 03:58:00 Test Item Value Reference Range Interpretation Comments Alk Phos (test code = Alk Phos) 148 39-136 [facility]2018-01-11 03:58:00 Test Item Value Reference Range Interpretation Comments Glucose Lvl (test code = Glucose Lvl) 102 70-99 [facility]2018-01-11 03:58:00 Test Item Value Reference Range Interpretation Comments BUN (test code = BUN) 9 7-22 [facility]2018-01-11 03:58:00 Test Item Value Reference Range Interpretation Comments Sodium Lvl (test code = Sodium Lvl) 138 135-145 [facility]2018-01-11 03:58:00 Test Item Value Reference Range Interpretation Comments Potassium Lvl (test code = Potassium 3.9 3.5-5.1 Lvl) [facility]2018-01-11 03:58:00 Test Item Value Reference Range Interpretation Comments Chloride Lvl (test code = Chloride Lvl) 99 95-109 [facility]2018-01-11 03:58:00 Test Item Value Reference Range Interpretation Comments Calcium Lvl (test code = Calcium Lvl) 9.7 8.5-10.5 [facility]2018-01-11 03:58:00 Test Item Value Reference Range Interpretation Comments Total Protein (test code = Total 9.0 6.4-8.4 Protein) [facility]2018-01-11 03:58:00 Test Item Value Reference Range Interpretation Comments Creatinine Lvl (test code = Creatinine 0.78 0.50-1.40 Lvl) [facility]2018-01-11 03:58:00 Test Item Value Reference Range Interpretation Comments ALT (test code = ALT) 28 See_Comment [Auto mated message] The system which ge nerated this result transmit marilu reference range : <=65. The reference range was not used to interpr et this result as stefanie l/abnormal. [facility]2018-01-11 03:58:00 Test Item Value Reference Range Interpretation Comments AST (test code = AST) 16 See_Comment [Auto mated message] The system which ge nerated this result transmit marilu reference range : <=37. The reference range was not used to interpr et this result as stefanie l/abnormal. [facility]2018-01-11 03:58:00 Test Item Value Reference Range Interpretation Comments CO2 (test code = CO2) 31 24-32 [facility]2018-01-11 03:58:00 Test Item Value Reference Range Interpretation Comments B/C Ratio (test code = B/C Ratio) 12 1 6-25 [facility]2018-01-11 03:58:00 Test Item Value Reference Range Interpretation Comments Globulin (test code = Globulin) 3.9 2.7-4.2 [facility]2018-01-11 03:58:00 Test Item Value Reference Range Interpretation Comments A/G Ratio (test code = A/G Ratio) 1.3 1 0.7-1.6 [facility]2018-01-11 03:58:00 Test Item Value Reference Range Interpretation Comments Amylase Lvl (test code = Amylase Lvl) 33 25-115 [facility]2018-01-11 03:58:00 Test Item Value Reference Range Interpretation Comments Lipase Lvl (test code = Lipase Lvl) 111 73-393 [facility]2018-01-11 03:58:00 Test Item Value Reference Range Interpretation Comments eGFR (test code = eGFR) See Comment [facility]2018-01-11 03:58:00 Test Item Value Reference Range Interpretation Comments Albumin Lvl (test code = Albumin Lvl) 5.1 3.5-5.0 [place] [id number] 03:58:00 Test Item Value Reference Range Interpretation Comments AGAP (test code = AGAP) 11.9 10.0-20.0 [facility]2018-01-11 03:58:00 Test Item Value Reference Range Interpretation Comments Bili Total (test code = Bili Total) 0.5 0.2-1.3 [facility]2018-01-11 03:58:00 Test Item Value Reference Range Interpretation Comments Alk Phos (test code = Alk Phos) 148 39-136 [facility]2018-01-11 03:58:00 Test Item Value Reference Range Interpretation Comments Glucose Lvl (test code = Glucose Lvl) 102 70-99 [facility]2018-01-11 03:58:00 Test Item Value Reference Range Interpretation Comments BUN (test code = BUN) 9 7-22 [facility]2018-01-11 03:58:00 Test Item Value Reference Range Interpretation Comments Sodium Lvl (test code = Sodium Lvl) 138 135-145 [facility]2018-01-11 03:58:00 Test Item Value Reference Range Interpretation Comments Potassium Lvl (test code = Potassium 3.9 3.5-5.1 Lvl) [facility]2018-01-11 03:58:00 Test Item Value Reference Range Interpretation Comments Chloride Lvl (test code = Chloride Lvl) 99 95-109 [facility]2018-01-11 03:58:00 Test Item Value Reference Range Interpretation Comments Calcium Lvl (test code = Calcium Lvl) 9.7 8.5-10.5 [facility]2018-01-11 03:58:00 Test Item Value Reference Range Interpretation Comments Total Protein (test code = Total 9.0 6.4-8.4 Protein) [facility]2018-01-11 03:58:00 Test Item Value Reference Range Interpretation Comments Creatinine Lvl (test code = Creatinine 0.78 0.50-1.40 Lvl) [id number]00 Test Item Value Reference Range Interpretation Comments Basophils # (test code 0.0 See_Comment [Aut omated message] The = Basophils #) system which generated this result tra nsmitted reference range : <=0.2. The reference r shaylee was not used to int erpret this result as normal/abnormal . [place] [id number] 03:58:00 Test Item Value Reference Range Interpretation Comments ALT (test code = ALT) 28 See_Comment [Auto mated message] The system which ge nerated this result transmit marilu reference range : <=65. The reference range was not used to interpr et this result as stefanie l/abnormal. [facility]2018-01-11 03:58:00 Test Item Value Reference Range Interpretation Comments AST (test code = AST) 16 See_Comment [Auto mated message] The system which ge nerated this result transmit marilu reference range : <=37. The reference range was not used to interpr et this result as stefanie l/abnormal. [facility]2018-01-11 03:58:00 Test Item Value Reference Range Interpretation Comments CO2 (test code = CO2) 31 24-32 [place] [id number] 03:58:00 Test Item Value Reference Range Interpretation Comments B/C Ratio (test code = B/C Ratio) 12 1 6-25 [place] [id number] 03:58:00 Test Item Value Reference Range Interpretation Comments Globulin (test code = Globulin) 3.9 2.7-4.2 [facility]2018-01-11 03:58:00 Test Item Value Reference Range Interpretation Comments A/G Ratio (test code = A/G Ratio) 1.3 1 0.7-1.6 [facility]2018-01-11 03:58:00 Test Item Value Reference Range Interpretation Comments AGAP (test code = AGAP) 11.9 10.0-20.0 [facility] [id number] 03:58:00 Test Item Value Reference Range Interpretation Comments Basophils # (test code 0.0 See_Comment [Aut omated message] The = Basophils #) system which generated this result tra nsmitted reference range : <=0.2. The reference r shaylee was not used to int erpret this result as normal/abnormal . [facility] [id number] 03:58:00 Test Item Value Reference Range Interpretation Comments Eosinophils # (test code 0.1 See_Comment [A utomated message] The = Eosinophils #) system [employer] generated this result tra nsmitted reference range : <=0.5. The reference r shaylee was not used to int erpret this result as normal/abnormal . [facility] [id number] 03:58:00 Test Item Value Reference Range Interpretation Comments Monocytes # (test code 0.6 See_Comment [Aut omated message] The = Monocytes #) system which generated this result tra nsmitted reference range : <=0.8. The reference r shaylee was not used to int erpret this result as normal/abnormal . [facility] Cent[id number] 03:58:00 Test Item Value Reference Range Interpretation Comments Eosinophils # (test code 0.1 See_Comment [A utomated message] The = Eosinophils #) system [employer] generated this result tra nsmitted reference range : <=0.5. The reference r shaylee was not used to int erpret this result as normal/abnormal . [facility] CenterUhiyzykHKAKOGYSTE9160-31-97 03:58:00 Test Item Value Reference Range Interpretation Comments Lymphocytes # (test code = Lymphocytes 2.0 1.0-5.5 #) [facility] CenterMlzvwyuNSDKNXMJRN9824-07-47 03:58:00 Test Item Value Reference Range Interpretation Comments Segs (test code = Segs) 75.7 45.0-75.0 [facility] CenterVazabpoUIEBVYXJFH0680-81-29 03:58:00 Test Item Value Reference Range Interpretation Comments Lymphocytes (test code = Lymphocytes) 17.8 20.0-40.0 [facility] Cent[id number] 03:58:00 Test Item Value Reference Range Interpretation Comments Segs-Bands # (test code = Segs-Bands #) 8.7 1.5-8.1 [facility] CenterPlzakiwBAGYPETIAS7893-21-29 03:58:00 Test Item Value Reference Range Interpretation Comments Eosinophils (test code = 0.8 See_Comment [A utomated message] The Eosinophils) system which ge nerated this result tra nsmitted reference range : <=4.0. The reference r shaylee was not used to int erpret this result as normal/abnormal . [facility] Cent[id number] 03:58:00 Test Item Value Reference Range Interpretation Comments Basophils (test code = 0.3 See_Comment [Aut omated message] The Basophils) system which ge nerated this result tra nsmitted reference range : <=1.0. The reference r shaylee was not used to int erpret this result as normal/abnormal . [facility] CenterXvwhkvdOCNOMDYLVU7692-17-30 03:58:00 Test Item Value Reference Range Interpretation Comments Monocytes (test code = Monocytes) 5.4 2.0-12.0 [facility] CenterWruffumNSFYHLXHLM1775-77-39 03:58:00 Test Item Value Reference Range Interpretation Comments RBC (test code = RBC) 5.74 4.70-6.10 [facility] CenterWlgjjftLNILLHECFH0562-11-21 03:58:00 Test Item Value Reference Range Interpretation Comments WBC (test code = WBC) 11.5 3.7-10.4 [facility] CenterVsfofhlQYYDMFUQUL3401-87-06 03:58:00 Test Item Value Reference Range Interpretation Comments Hgb (test code = Hgb) 17.3 14.0-18.0 [facility] CenterJpuxvonFZYISSNUCZ0270-94-83 03:58:00 Test Item Value Reference Range Interpretation Comments Monocytes # (test code 0.6 See_Comment [Aut omated message] The = Monocytes #) system which generated this result tra nsmitted reference range : <=0.8. The reference r shaylee was not used to int erpret this result as normal/abnormal . [facility] CenterPtswupiMPPZJUCFOE1446-93-49 03:58:00 Test Item Value Reference Range Interpretation Comments MCH (test code = MCH) 30.1 pg 27.0-31.0 [facility] CenterJafgqlwZEEVOFFLTP7668-46-95 03:58:00 Test Item Value Reference Range Interpretation Comments MCHC (test code = MCHC) 33.4 32.0-36.0 [facility] CenterYsedyjvIIOLJEMRZF6787-02-56 03:58:00 Test Item Value Reference Range Interpretation Comments MCV (test code = MCV) 90.1 80.0-94.0 [facility] Cent[id number] 03:58:00 Test Item Value Reference Range Interpretation Comments Hct (test code = Hct) 51.7 42.0-54.0 [facility] CenterYnkblfmCUNAVOVSXD9301-55-04 03:58:00 Test Item Value Reference Range Interpretation Comments Platelet (test code = Platelet) 278 133-450 [facility] Cent[id number] 03:58:00 Test Item Value Reference Range Interpretation Comments MPV (test code = MPV) 9.2 7.4-10.4 [facility] CenterBsxohrkQUVFCFQIZL5869-28-64 03:58:00 Test Item Value Reference Range Interpretation Comments RDW (test code = RDW) 12.9 11.5-14.5 [facility] AND [id number] 03:58:00 Test Item Value Reference Range Interpretation Comments UA Sq Epi (test code = UA Sq Epi) None Seen [facility] AND [id number] 03:58:00 Test Item Value Reference Range Interpretation Comments UA Urobilinogen (test code = UA <=1.0 mg/dL 0.1-1.0 Urobilinogen) [facility] AND [id number] 03:58:00 Test Item Value Reference Range Interpretation Comments UA Color (test code = Light Yellow UA Color) *NA*(10/09/17 9:58 PM) [facility] CenterDbffafqQCAYJDVNDX9728-57-50 03:58:00 Test Item Value Reference Range Interpretation Comments Lymphocytes # (test code = Lymphocytes 2.0 1.0-5.5 #) [facility] AND [id number] 03:58:00 Test Item Value Reference Range Interpretation Comments UA Spec Grav (test code = UA Spec 1.014 1 Grav) [facility] AND [id number] 03:58:00 Test Item Value Reference Range Interpretation Comments UA Protein (test code = UA Negative mg/dL Protein) [facility] AND [id number] 03:58:00 Test Item Value Reference Range Interpretation Comments UA pH (test code = UA pH) 8.0 1 5.0-8.0 [facility] AND [id number] 03:58:00 Test Item Value Reference Range Interpretation Comments UA Turbidity (test code Slight *ABN*(10/09/17 = UA Turbidity) 9:58 PM) [facility] AND [id number] 03:58:00 Test Item Value Reference Range Interpretation Comments UA Glucose (test code = UA Negative mg/dL Glucose) [facility] AND [id number] 03:58:00 Test Item Value Reference Range Interpretation Comments UA Ketones (test code = UA Negative mg/dL Ketones) [facility] AND [id number] 03:58:00 Test Item Value Reference Range Interpretation Comments UA Bili (test code = Negative *NA*(10/09/17 UA Bili) 9:58 PM) [facility] AND [id number] 03:58:00 Test Item Value Reference Range Interpretation Comments UA Blood (test code = Negative (10/09/17 9:58 UA Blood) PM) [facility] AND [id number] 03:58:00 Test Item Value Reference Range Interpretation Comments UA Nitrite (test code Negative (10/09/17 9:58 = UA Nitrite) PM) [facility] AND [id number] 03:58:00 Test Item Value Reference Range Interpretation Comments UA RBC (test code = 1 See_Comment [Automa marilu message] The UA RBC) system which ge nerated this result transmit marilu reference range : <=2. The reference range was not used to interpr et this result as stefanie l/abnormal. [facility] [id number] 03:58:00 Test Item Value Reference Range Interpretation Comments Segs (test code = Segs) 75.7 45.0-75.0 [facility] AND [id number] 03:58:00 Test Item Value Reference Range Interpretation Comments UA Leuk Est (test Negative (10/09/17 9:58 code = UA Leuk Est) PM) [facility] AND [id number] 03:58:00 Test Item Value Reference Range Interpretation Comments UA WBC (test code = 2 See_Comment [Automa marilu message] The UA WBC) system which ge nerated this result transmit marilu reference range : <=5. The reference range was not used to interpr et this result as stefanie l/abnormal. [facility] CenterXplpsxmLKSNGDKEML8999-54-69 03:58:00 Test Item Value Reference Range Interpretation Comments Lymphocytes (test code = Lymphocytes) 17.8 20.0-40.0 [facility] CenterPktasvhQIALDOBUVZ5597-70-62 03:58:00 Test Item Value Reference Range Interpretation Comments Segs-Bands # (test code = Segs-Bands #) 8.7 1.5-8.1 [facility] C[id number] 03:58:00 Test Item Value Reference Range Interpretation Comments Eosinophils (test code = 0.8 See_Comment [A utomated message] The Eosinophils) system which ge nerated this result tra nsmitted reference range : <=4.0. The reference r shaylee was not used to int erpret this result as normal/abnormal . [facility] CenterLvvpfvrGOOWGXNKDD9748-05-12 03:58:00 Test Item Value Reference Range Interpretation Comments Basophils (test code = 0.3 See_Comment [Aut omated message] The Basophils) system which ge nerated this result tra nsmitted reference range : <=1.0. The reference r shaylee was not used to int erpret this result as normal/abnormal . [facility] CenterQziuamtJFHEVZZGSH5362-83-44 03:58:00 Test Item Value Reference Range Interpretation Comments Monocytes (test code = Monocytes) 5.4 2.0-12.0 [facility] CenterQetwzeiFFZRCKMXBC1930-17-30 03:58:00 Test Item Value Reference Range Interpretation Comments RBC (test code = RBC) 5.74 4.70-6.10 [facility] [id number] 03:58:00 Test Item Value Reference Range Interpretation Comments WBC (test code = WBC) 11.5 3.7-10.4 [facility] CenterKvxywxaXAOOMHNATK7635-36-97 03:58:00 Test Item Value Reference Range Interpretation Comments Hgb (test code = Hgb) 17.3 14.0-18.0 [facility] C[id number] 03:58:00 Test Item Value Reference Range Interpretation Comments MCH (test code = MCH) 30.1 pg 27.0-31.0 [facility] CenterXcmkqcvGHJPKWYXHB0456-84-26 03:58:00 Test Item Value Reference Range Interpretation Comments MCHC (test code = MCHC) 33.4 32.0-36.0 [facility] [id number] 03:58:00 Test Item Value Reference Range Interpretation Comments MCV (test code = MCV) 90.1 80.0-94.0 [facility] CenterUddzonwJYLPMJVXRN4817-94-09 03:58:00 Test Item Value Reference Range Interpretation Comments Hct (test code = Hct) 51.7 42.0-54.0 [facility] CenterSxdkgfrGUUYBZOKIP2396-83-17 03:58:00 Test Item Value Reference Range Interpretation Comments Platelet (test code = Platelet) 278 133-450 [facility] Cent[id number] 03:58:00 Test Item Value Reference Range Interpretation Comments MPV (test code = MPV) 9.2 7.4-10.4 [facility]ueqknRKBLNQCUTP4337-70-36 03:58:00 Test Item Value Reference Range Interpretation Comments RDW (test code = RDW) 12.9 11.5-14.5 [facility] [id number] 03:58:00 Test Item Value Reference Range Interpretation Comments UA Sq Epi (test code = UA Sq Epi) None Seen [facility] AND [id number] 03:58:00 Test Item Value Reference Range Interpretation Comments UA Urobilinogen (test code = UA <=1.0 mg/dL 0.1-1.0 Urobilinogen) [facility] [id number] 03:58:00 Test Item Value Reference Range Interpretation Comments UA Color (test code = Light Yellow UA Color) *NA*(10/09/17 9:58 PM) [facility] [id number] 03:58:00 Test Item Value Reference Range Interpretation Comments UA Spec Grav (test code = UA Spec 1.014 1 Grav) [facility] AND [id number] 03:58:00 Test Item Value Reference Range Interpretation Comments UA Protein (test code = UA Negative mg/dL Protein) [facility] [id number] 03:58:00 Test Item Value Reference Range Interpretation Comments UA pH (test code = UA pH) 8.0 1 5.0-8.0 [facility] [id number] 03:58:00 Test Item Value Reference Range Interpretation Comments UA Turbidity (test code Slight *ABN*(10/09/17 = UA Turbidity) 9:58 PM) [facility] AND [id number] 03:58:00 Test Item Value Reference Range Interpretation Comments UA Glucose (test code = UA Negative mg/dL Glucose) [facility] AND [id number] 03:58:00 Test Item Value Reference Range Interpretation Comments UA Ketones (test code = UA Negative mg/dL Ketones) [facility] [id number] 03:58:00 Test Item Value Reference Range Interpretation Comments UA Bili (test code = Negative *NA*(10/09/17 UA Bili) 9:58 PM) [facility] AND [id number] 03:58:00 Test Item Value Reference Range Interpretation Comments UA Blood (test code = Negative (10/09/17 9:58 UA Blood) PM) [facility] AND [id number] 03:58:00 Test Item Value Reference Range Interpretation Comments UA Nitrite (test code Negative (10/09/17 9:58 = UA Nitrite) PM) [facility] AND [id number] 03:58:00 Test Item Value Reference Range Interpretation Comments UA RBC (test code = 1 See_Comment [Automa marilu message] The UA RBC) system which [employer] nerated this result transmit marilu reference range : <=2. The reference range was not used to interpr et this result as stefanie l/abnormal. [facility] AND [id number] 03:58:00 Test Item Value Reference Range Interpretation Comments UA Leuk Est (test Negative (10/09/17 9:58 code = UA Leuk Est) PM) [facility] AND [id number] 03:58:00 Test Item Value Reference Range Interpretation Comments UA WBC (test code = 2 See_Comment [Automa marilu message] The UA WBC) system which [employer] nerated this result transmit marilu reference range : <=5. The reference range was not used to interpr et this result as stefanie l/abnormal. [facility]annCHEM [id number] 03:58:00 Test Item Value Reference Range Interpretation Comments Amylase Lvl (test code = Amylase Lvl) 33 25-115 [facility] FACIAL W/O [id number] 18:23:12CT FACIAL BONES WITHOUT CONTRASTHISTORY: Injury, closed [...] bone fracture is identified.Location: D4CT HEAD W/O [id number] 18:07:09Location code: [id number]: Closed head injury.COMMENT:Axial imaging of the patient's [...] sinuses.IMPRESSION: No acute intracranial findings.[employer] [id number] 07:39:00 Test Item Value Reference Range Interpretation Comments Culture Observations NO BETA HEMOLYTIC (test code = COB1) STREPTOCOCCUS ISOLATED Direct Exam (test code NEGATIVE FOR STREP A = DE1) ANTIGEN BASIC METABOLIC [id number] 16:07:00 Test Item Value Reference Range Interpretation [...] 09D) 9.5 mg/dL 8.3-9.5 [employer] AND [id number] 15:55:00 Test Item Value Reference Range Interpretation [...] pain , right upper quadrant pain [facility] EXAM: Right upper quadrant ultrasound 10/09/2017 9:53 PM [employer] Comparisons: none. TECHNIQUE: Utilizing a curve d [...] cortex. IMPRESSION: Unremarkable right upper quadrant ultrasound. 2017-10-09 22:38:35-00:00 CLINICAL HISTORY: Abdominal pain , right upper quadrant pain [facility] EXAM: Right upper quadrant ultrasound 10/09/2017 9:53 PM [employer] Comparisons: none. TECHNIQUE: Utilizing a curve d [...]
[2023-05-13] MEDS ORDERED: DIPHENOX/ATROP SULF 1 TAB PO ONE (16:06)
[2023-05-13 16:30] LABS: SARS-CoV-2 Antigen Rapid Res Negative (Negative)
--- NOTE | 2023-05-13 17:11 | EDPHYS ---
Physician Documentation [facility] Name: Hugo Hurley Age: 22 yrs Sex: Male : 2000 Arrival Date: 05/13/2023 Time: 15:29 Bed 9 Private MD: ED Physician Sony Kothari HPI: 05/13 15:54 This 22 yrs old Male presents to ER via Ambulatory with complaints of Headache, Sore snw Throat, Diarrhea. 15:54 Pt was here last week with + covid. Had negative test today but has sore throat, snw diarrhea, and headache and would like to know if he has something else now.. Severity of symptoms: At their worst the symptoms were moderate. as noted. Historical: - Allergies: 15:40 No Known Allergies; me1 - Home Meds: 15:40 None [Active]; me1 - PMHx: 15:40 None; me1 - PSHx: 15:40 Tonsillectomy; me1 - Immunization history:: Adult Immunizations up to date. - Social history:: Smoking status: Patient denies any tobacco usage or history of. ROS: 15:54 Constitutional: Negative for fever, chills, and weight loss, Eyes: Negative for injury, snw pain, redness, and discharge, ENT: Negative for injury and discharge, + sore throat Neck: Negative for injury, pain, and swelling, Cardiovascular: Negative for chest pain, palpitations, and edema, Respiratory: Negative for shortness of breath, cough, wheezing, and pleuritic chest pain, Abdomen/GI: Negative for abdominal pain, nausea, vomiting, and constipation, + diarrhea Back: Negative for injury and pain, : Negative for injury, bleeding, discharge, and swelling, MS/Extremity: Negative for injury and deformity, Skin: Negative for injury, rash, and discoloration, Neuro: Negative for headache, weakness, numbness, tingling, and seizure, Psych: Negative for depression, anxiety, suicide ideation, homicidal ideation, and hallucinations. Exam: 15:56 Constitutional: This is a well developed, well nourished patient who is awake, alert, snw and in no acute distress. Head/Face: Normocephalic, atraumatic. Eyes: Pupils equal round and reactive to light, extra-ocular motions intact. Lids and lashes normal. Conjunctiva and sclera are non-icteric and not injected. Cornea within normal limits. Periorbital areas with no swelling, redness, or edema. ENT: Nares patent. No nasal discharge, no septal abnormalities noted. Tympanic membranes are normal and external auditory canals are clear. Oropharynx with no redness, swelling, or masses, exudates, or evidence of obstruction, uvula midline. Mucous membranes moist. Neck: Trachea midline, no thyromegaly or masses palpated, and no cervical lymphadenopathy. Supple, full range of motion without nuchal rigidity, or vertebral point tenderness. No Meningismus. Chest/axilla: Normal chest wall appearance and motion. Nontender with no deformity. No lesions are appreciated. Cardiovascular: Regular rate and rhythm with a normal S1 and S2. No gallops, murmurs, or rubs. Normal PMI, no JVD. No pulse deficits. Respiratory: Lungs have equal breath sounds bilaterally, clear to auscultation and percussion. No rales, rhonchi or wheezes noted. No increased work of breathing, no retractions or nasal flaring. Abdomen/GI: Soft, non-tender, with normal bowel sounds. No distension or tympany. No guarding or rebound. No evidence of tenderness throughout. Back: No spinal tenderness. No costovertebral tenderness. Full range of motion. Skin: Warm, dry with normal turgor. Normal color with no rashes, no lesions, and no evidence of cellulitis. MS/ Extremity: Pulses equal, no cyanosis. Neurovascular intact. Full, normal range of motion. Neuro: Awake and alert, GCS 15, oriented to person, place, time, and situation. Cranial nerves II-XII grossly intact. Motor strength 5/5 in all extremities. Sensory grossly intact. Cerebellar exam normal. Normal gait. Psych: Awake, alert, with orientation to person, place and time. Behavior, mood, and affect are within normal limits. Vital Signs: 15:38 BP 151 / 94; Pulse 63; Resp 17; Temp 98.4(O); Pulse Ox 98% on R/A; Weight 81.65 kg; me1 Height 5 ft. 6 in. ; 17:35 BP 132 / 78; Pulse 70; Resp 16; Pulse Ox 99% on R/A; mb9 15:38 Body Mass Index 29.05 (81.65 kg, 167.64 cm) me1 MDM: 15:35 Patient medically screened. snw 15:57 Differential Diagnosis URI, GE, flu. Data reviewed: vital signs, nurses notes. snw Counseling: I had a detailed discussion with the patient and/or guardian regarding: the historical points, exam findings, and any diagnostic results supporting the discharge/admit diagnosis, the presence of at least one elevated blood pressure reading (>120/80) during this emergency department visit, lab results. Special discussion: Based on the history and exam findings, there is no indication for further emergent testing or inpatient evaluation. I discussed with the patient/guardian the need to see the primary care provider for further evaluation of the symptoms. 05/13 15:35 Order name: SARS RAPID; Complete Time: 16:40 snw 05/13 15:35 Order name: Flu; Complete Time: 16:40 snw 05/13 15:35 Order name: Strep; Complete Time: 16:40 snw 05/13 16:27 Order name: Throat Culture EDMS Administered Medications: 16:09 Drug: Diphenoxylate-Atropine PO 1 tabs Route: PO; mb9 16:38 Follow up: Response: No adverse reaction mb9 Disposition Summary: 05/13/23 17:11 Discharge Ordered Location: Home snw Condition: Stable snw Diagnosis - Diarrhea, unspecified snw Followup: snw - With: Emergency Department - When: As needed - Reason: Worsening of condition Followup: snw - With: Private Physician - When: 2 - 3 days - Reason: Recheck today's complaints, Continuance of care, Re-evaluation by your physician Discharge Instructions: - Discharge Summary Sheet snw - Food Choices to Help Relieve Diarrhea, Adult snw - Diarrhea, Adult snw Forms: - Medication Reconciliation Form snw - Thank You Letter snw - Antibiotic Education snw - Prescription Opioid Use snw - Patient Portal Instructions snw - Leadership Thank You Letter snw - Work release form mb9 Signatures: Dispatcher [employer] Ruth Dunn, PRODUCTION OPERATOR-C PRODUCTION OPERATOR-Csnw Renuka Beal RN RN mb9 Margarita Estrada RN RN me1 Corrections: (The following items were deleted from the chart) 15:40 15:40 PSHx: None; me1 me1
--- NOTE | 2023-05-13 17:11 | ER ---
Nurse's Notes [facility] Name: Hugo Hurley Age: 22 yrs Sex: Male : 2000 Arrival Date: 05/13/2023 Time: 15:29 Bed 9 Private MD: Diagnosis: Diarrhea, unspecified Presentation: 05/13 15:38 Chief complaint: Patient states: c/o CHAIDEZ, sore throat, diarrhea, fever and chills. Came me1 in last week and was negative for covid but thinks he has it now. Coronavirus screen: Vaccine status: Patient reports being unvaccinated. chills, diarrhea, fever, headache, sore throat. Ebola Screen: No symptoms or risks identified at this time. Initial Sepsis Screen: Does the patient meet any 2 criteria? No. Patient's initial sepsis screen is negative. Does the patient have a suspected source of infection? No. Patient's initial sepsis screen is negative. Risk Assessment: Do you want to hurt yourself or someone else? Patient reports no desire to harm self or others. Onset of symptoms is unknown. 15:38 Method Of Arrival: Ambulatory nj1 15:38 Acuity: KIRSTEN 4 me1 Triage Assessment: 15:54 Headache History: The patient has had previous headaches. General: Appears in no mb9 apparent distress. Historical: - Allergies: 15:40 No Known Allergies; me1 - Home Meds: 15:40 None [Active]; me1 - PMHx: 15:40 None; me1 - PSHx: 15:40 Tonsillectomy; me1 - Immunization history:: Adult Immunizations up to date. - Social history:: Smoking status: Patient denies any tobacco usage or history of. Screenin:53 [facility] ED Fall Risk Assessment (Adult) History of falling in the last 3 months, mb9 including since admission No falls in past 3 months (0 pts) Confusion or Disorientation No (0 pts) Intoxicated or Sedated No (0 pts) Impaired Gait No (0 pts) Mobility Assist Device Used No (0 pt) Altered Elimination No (0 pt) Score/Fall Risk Level 0 - 2 = Low Risk Oriented to surroundings, Maintained a safe environment, Educated pt \T\ family on fall prevention, incl call for assistance when getting out of bed. Abuse screen: Denies threats or abuse. Nutritional screening: No deficits noted. Tuberculosis screening: No symptoms or risk factors identified. Assessment: 15:52 General: Appears in no apparent distress. Behavior is calm, cooperative. Pain: mb9 Complains of pain in head and throat Pain does not radiate. Quality of pain is described as aching, throbbing. Neuro: Moore Agitation-Sedation Scale (RASS): 0 - Alert and Calm Level of Consciousness is awake, alert, obeys commands, Oriented to person, place, time, situation, Appropriate for age. Neuro: Reports headache. Cardiovascular: Patient's skin is warm and dry. Respiratory: Airway is patent Respiratory effort is even, unlabored, Respiratory pattern is regular, symmetrical. GI: Abdomen is flat, non-distended, Bowel sounds present X 4 quads. Abd is soft and non tender X 4 quads. Reports diarrhea, nausea. : No signs and/or symptoms were reported regarding the genitourinary system. EENT: Throat is reddened. Derm: Skin is pink, warm \T\ dry. Musculoskeletal: Range of motion: intact in all extremities. 16:55 Reassessment: No changes from previously documented assessment. Patient and/or family mb9 updated on plan of care and expected duration. Pain level reassessed. Patient is alert, oriented x 3, equal unlabored respirations, skin warm/dry/pink. Vital Signs: 15:38 BP 151 / 94; Pulse 63; Resp 17; Temp 98.4(O); Pulse Ox 98% on R/A; Weight 81.65 kg; me1 Height 5 ft. 6 in. ; 17:35 BP 132 / 78; Pulse 70; Resp 16; Pulse Ox 99% on R/A; mb9 15:38 Body Mass Index 29.05 (81.65 kg, 167.64 cm) nj1 ED Course: 15:32 Patient arrived in ED. im 15:32 Ruth Cochran FNP-C [facility] snw 15:32 Sony Kothari MD is Attending Physician. snw 15:40 Triage completed. me1 15:40 Arm band placed on Patient placed in waiting room. me1 15:52 Renuka Beal RN is Primary Nurse. mb9 15:54 Placed in gown. Bed in low position. Call light in reach. Side rails up X 1. Client mb9 placed on continuous cardiac and pulse oximetry monitoring. NIBP monitoring applied. 16:09 Strep Sent. mb9 16:09 Flu Sent. mb9 16:09 SARS RAPID Sent. mb9 17:35 No provider procedures requiring assistance completed. Patient did not have IV access mb9 during this emergency room visit. Administered Medications: 16:09 Drug: Diphenoxylate-Atropine PO 1 tabs Route: PO; mb9 16:38 Follow up: Response: No adverse reaction mb9 Medication: 15:54 VIS not applicable for this client. mb9 Outcome: 17:11 Discharge ordered by MD. lopez 17:35 Discharged to home ambulatory. mb9 17:35 Condition: stable 17:35 Discharge instructions given to patient, Instructed on discharge instructions, follow up and referral plans. Demonstrated understanding of instructions, follow-up care, medications. 17:35 Patient left the ED. mb9 Signatures: Ruth Cochran, SPECIAL NEEDS CHILD CAREGIVER-C SPECIAL NEEDS CHILD CAREGIVER-Csnw Renuka Beal RN RN mb9 Katy Cadena Michelle, RN RN me1 Corrections: (The following items were deleted from the chart) 15:40 15:40 PSHx: None; me1 me1
[2023-05-13 18:06] VITALS: TEMP 98.4
[2023-05-13 18:07] VITALS: BP 132/78; O2SAT 99
== END 2023-05-13 17:35 | disposition home or self-care (01) ==
LOC: ER 15:29
DX: R19.7 Diarrhea, unspecified (principal); R51.9 Headache, unspecified; J02.9 Acute pharyngitis, unspecified; Z20.822 Contact with and (suspected) exposure to COVID-19
CPT/HCPCS: 36415; 87070; 87081; 87804; 87811